=== PATIENT | female | born 1950 | race Caucasian/White ===

== ENCOUNTER 2016-12-19 10:52 | Inpatient (IN) ==
[2016-12-19] MEDS: LOVENOX SUBQ SCH (12:30)
[2016-12-19 12:46] LABS: RETIC% 1.49 % (0.8-2.1); RETIC-HE 41.1 PG (28.2-36.6)
[2016-12-19] MEDS ORDERED: ZOFRAN IV PRN (12:53)
[2016-12-19] MEDS ORDERED: TYLENOL PO PRN (12:56)
[2016-12-19 13:02] LABS: HEMATOCRIT 31.1 % (37.0-47.0); HEMOGLOBIN 10.4 g/dL (12.0-16.0); MANUAL DIFF NEEDED? YES; MCH 31.7 PG (27-31); MCHC 33.4 g/dL (33-37); MCV 94.8 FL (81-99); MPV 9.8 FL (7.4-10.4); PLT 97 X1000 (130-400); RBC 3.28 XMIL (4.2-5.4)
[2016-12-19 13:05] LABS: ALBUMIN 3.4 g/dL (3.5-5.0); CALCIUM 10.3 mg/dL (8.8-10.2); IRON SATURATION 64 %; TIBC 209 ug/dL; TOTAL BILIRUBIN 2.36 mg/dL (0.20-1.00); TOTAL IRON 133 ug/dL (49-151); TOTAL PROTEIN 7.7 g/dL (6.3-8.3); UNBOUND IRON 76 ug/dL (112-346)
[2016-12-19] MEDS: NS 1,000 ML IV SCH (14:00)
[2016-12-19 14:04] LABS: BANDS 2 % (0-1); EOS 2 % (1-10); HYPOCHROM 1+; LYMPHS 40 % (21-51); MONO 4 % (1-9)
--- NOTE | 2016-12-19 15:44 | EKG Report ---
Test Performed on : 12/19/2016 2:51:20 PM Test Reason : chest pain Blood Pressure : / mmHG Vent. Rate : 116 BPM Atrial Rate : 116 BPM P-R Int : 124 ms QRS Dur : 072 ms QT Int : 314 ms P-R-T Axes : -09 035 025 degrees QTc Int : 436 ms Sinus tachycardia. Otherwise normal ECG No previous ECGs available Confirmed by Yakov Meléndez MD ([id number]) on 12/22/2016 7:29:40 AM
--- NOTE | 2016-12-19 15:55 | Diag Imaging Result Document ---
PROCEDURE NAME: FLAT/UPRIGHT ABD/1 VIEW CHEST - 12/19/2016 ABDOMINAL SERIES: FINDINGS: The bowel gas pattern appears nonspecific and nonobstructive. There is a moderate amount of retained fecal debris in the colon. There is no free air identified. Upright chest shows within normal limits heart size. There is airspace disease at the bilateral lung bases, most prominent on the left. There are small bilateral pleural effusions. There is no pneumothorax seen. The visualized bony structures demonstrate heterogeneous density pattern relatively diffusely with sclerosis and small lucencies. This can be seen with diffuse skeletal metastases. IMPRESSION: 1. Apparent constipation. Nonspecific bowel gas pattern otherwise. 2. Airspace disease at bilateral lung bases, most prominent on the left. Small bilateral pleural effusions. 3. Heterogeneous bony density relatively diffusely. This can be seen with diffuse skeletal metastases.
[2016-12-19 17:11] LABS: INR 1.13; PTT 27.1 Seconds (22.0-36.0)
[2016-12-19] MEDS: PROTONIX IV SCH (20:57)
[2016-12-19] MEDS: ZOSYN 3.375 GM/NS 3.375 GM/50 ML IVPB IV SCH (20:57)
[2016-12-19] MEDS: SODIUM CHLORIDE 0.9% INJ SCH (20:57)
[2016-12-19] MEDS: DULCOLAX PR SCH (20:58)
[2016-12-19] MEDS: COLACE PO SCH (20:58)
[2016-12-19] MEDS: MIRALAX PO SCH (20:58)
--- NOTE | 2016-12-19 21:07 | HISTORY AND PHYSICAL ---
PRIMARY CARE PHYSICIAN: Located at [facility]. HISTORY OF PRESENT ILLNESS: Ms Lombardi is a 66-year-old female with no significant past medical history who was sent as a direct admission for further workup of metastatic disease. The patient reports that over 4 weeks ago she started to experience abdominal pain associated with nausea and vomiting. The patient also states that she has been severely constipated for the last 4 weeks as well. The patient has also had unintentional weight loss. The patient states that she is normally a size 12 and now she is down to a size 9. She denies having any fever , chills, shortness of breath or chest pain or recent syncopal episodes. The patient does state that she has never had a colonoscopy done before. The patient was seen by Shannon Paulson, the nurse practitioner at [facility] at which time the patient underwent some routine blood work that revealed a white blood cell count is 28,000 as well as a platelet count of 73,000. S Also patient's LFTs were noted to be elevated. The patient then underwent a abdominal ultrasound that revealed multiple indeterminate solid organ hypoechoic lesions that was then followed up with a CT of the chest without contrast that revealed bilateral pleural effusions as well as bilateral pleural thickening. The patient also underwent a CT of the abdomen and pelvis without contrast that revealed diffuse bony osteolytic defects consistent with metastatic disease. There were also multiple lesions within the liver suspicious for metastatic disease. The patient was then referred to Dr. Schmitt for further workup. The patient was noted to have a normal bone scan done. At this time the patient states that she has been having occasional back pain and intermittent abdominal pain. PAST MEDICAL HISTORY: None. PAST SURGICAL HISTORY: Hysterectomy in 1984. FAMILY HISTORY: The patient's mother had colon cancer. The patient's father had cancer but the patient states that she does not know what type. SOCIAL HISTORY: The patient denies any tobacco, alcohol or illicit drug use. ALLERGIES: No known drug allergies. HOME MEDICATIONS: None. REVIEW OF SYSTEMS: All other review of systems are negative. Please refer to the history of present illness for pertinent positives and negatives. PHYSICAL EXAMINATION: VITAL SIGNS: Temperature 97.8 degrees, blood pressure 106/55, heart rate 124, respiratory rate 19, O2 saturations 95% on room air. GENERAL: This is a chronically ill-appearing elderly female lying in bed in no acute distress. EYES: Conjunctiva clear, EOMI, PERRLA. NECK: Supple, no JVD. No lymphadenopathy. No carotid bruits. LUNGS: Equal air entry bilaterally. Clear to auscultation bilaterally. Diminished breath sounds at the bases. HEART: S1, S2. Normal. Tachycardic. ABDOMEN: Positive bowel sounds. Soft, nontender, nondistended. EXTREMITIES: No edema. No cyanosis. No calf tenderness. NEUROLOGIC: The patient is alert oriented x3. No focal neurologic deficits noted. LABS: White blood cell count 74, hemoglobin 10.4, hematocrit 31, platelets 97, 000, ESR 31. Sodium 133, potassium 4, chloride 95, CO2 22, BUN 28, creatinine 1.3, glucose 102, calcium 10.3, iron 132, TIBC 209, percent saturation 64, ferritin 1135, total bilirubin 2.36, AST 93, ALT 89, alkaline phosphatase 201, LDH 496, CRP 3.8, albumin 3.4, folate 7.6, TSH 1.59, CEA 0.6, vitamin B12 412. EKG shows sinus tachycardia at 116 beats per minute. Abdominal x-ray shows constipation. Air space disease in the lung bases most prominent on the left. Small bilateral pleural effusions and suspected diffuse skeletal metastasis. ASSESSMENT AND PLAN: 1. Metastatic disease. The patient has had staging scans done. Gastroenterology has been consulted to perform endoscopy on the patient to rule out a gastrointestinal source of malignancy. Further recommendations to follow from the oncologist and tree topper. 2. Leukocytosis. The on site wastewater systems technician as ordered flow cytometry. Monitor the patient's white count closely. Cultures have been ordered. 3. Bilateral pleural effusions. These appear to be small and stable. Will continue to monitor the patient closely. 4. Thrombocytopenia. This may be a function of bone marrow suppression. Will await further malignancy workup. 5. Folate deficiency. Will start the patient on folic acid. 6. Constipation. Will start the patient on scheduled laxative therapy. 7. Acute kidney injury. Will start the patient on gentle IV fluid hydration and avoid nephrotoxic agents. Will also monitor the patient's urine output closely. 8. Basilar infiltrates. Will start zosyn. Sputum and blood cultures have been ordered. 9. Deep vein thrombosis prophylaxis. The patient has been started on Lovenox. 10. The plan of care was discussed with the patient and her family at the bedside. cc: Kaya Russo MD [facility]
[2016-12-19 22:30] LABS: URINE SOURCE CLEAN CATCH
[2016-12-19 22:33] LABS: BILIRUBIN URINE NEGATIVE (NEGATIVE); BLOOD URINE NEGATIVE (NEGATIVE); COLOR ORANGE; GLUCOSE URINE NEGATIVE (NEGATIVE); LEUKOCYTES URINE NEGATIVE (NEGATIVE); NITRITE URINE NEGATIVE (NEGATIVE); PH URINE 5.5; PROTEIN URINE 30 mg/dL (NEGATIVE); SP GRAVITY URINE 1.025; TURBIDITY URINE TURBID (CLEAR); UROBILINOGEN URINE NORMAL (NORMAL)
[2016-12-19 22:34] LABS: URINE MICRO REVIEW NEEDED? YES
[2016-12-19 22:40] LABS: UR EPITHELIAL CELLS <10 /HPF (<10); URINE BACTERIA NEGATIVE /HPF; URINE RBC <10 /HPF (<10); URINE WBC <10 /HPF (<10)
[2016-12-19 22:43] LABS: URINE CASTS NONE SEEN; URINE CRYSTALS NONE SEEN; URINE SMALL ROUND CELLS NONE SEEN
[2016-12-20] MEDS: NORCO-5 PO PRN (00:15)
[2016-12-20] MEDS: ZOSYN 3.375 GM/NS 3.375 GM/50 ML IVPB IV SCH ×4 (02:11→20:56)
[2016-12-20] MEDS: NS 1,000 ML IV SCH ×2 (02:12→18:18)
[2016-12-20 07:57] LABS: FLOW CYTOMETERY SOURCE WHOLE BLOOD; LEUKEMIA LYMPHOMA BY FLOW REFERRED FOR TESTING
[2016-12-20] MEDS: FOLIC ACID PO SCH (08:36)
[2016-12-20] MEDS: SODIUM CHLORIDE 0.9% INJ SCH ×2 (08:36→20:56)
[2016-12-20] MEDS: PROTONIX IV SCH ×2 (08:36→20:56)
[2016-12-20] MEDS: COLACE PO SCH ×2 (08:36→20:57)
[2016-12-20] MEDS: MIRALAX PO SCH ×2 (08:37→20:56)
[2016-12-20 08:41] LABS: ALBUMIN 2.7 g/dL (3.5-5.0); CALCIUM 9.7 mg/dL (8.8-10.2); POTASSIUM 4.1 mmol/L (3.5-5.1); TOTAL BILIRUBIN 2.17 mg/dL (0.20-1.00); TOTAL PROTEIN 6.3 g/dL (6.3-8.3)
[2016-12-20 08:45] LABS: INR 1.09; PROTIME 11.5 Seconds (9.2-11.7)
[2016-12-20 08:52] LABS: HEMATOCRIT 26.2 % (37.0-47.0); HEMOGLOBIN 8.6 g/dL (12.0-16.0); MANUAL DIFF NEEDED? YES; MCH 31.5 PG (27-31); MCHC 32.8 g/dL (33-37); MPV 9.3 FL (7.4-10.4); PLT 79 X1000 (130-400); RBC 2.73 XMIL (4.2-5.4)
[2016-12-20 11:27] LABS: HYPOCHROM 2+; LYMPHS 46 % (21-51); MONO 2 % (1-9)
--- NOTE | 2016-12-20 11:49 | CONSULTATION ---
DATE OF CONSULTATION: 12/20/2016 REASON FOR CONSULT: This patient has liver and bony metastases as well as leukocytosis. HISTORY OF PRESENT ILLNESS: Ms. Lombardi came into our clinic as a new patient yesterday, 12/19/2016, after having some imaging done in [place] that showed extensive bony metastases involving the majority of the lumbar and thoracic vertebrae as well as sacrum, right and left iliac bones and femurs as well as pubic rami. The scan from [place] also showed poorly delineated multiple areas of metastatic disease within the liver as well as bilateral pleural effusions. She had been seen at [place] after having a weight loss of at least 10 pounds over 4 weeks, anorexia, and severe constipation as well as diffuse abdominal pain associated with nausea. She denies any obvious fevers, chills, dyspnea, or drenching night sweats. Her laboratories were checked approximately 1 week ago and revealed lymphocytic leukocytosis and thrombocytopenia. She was seen in our office yesterday on 12/19/16. She complained of constipation for the last several weeks along with abdominal pain. Her imaging and labs were reviewed and she has subsequently been admitted to the hospital for further workup and evaluation. Laboratories upon admission showed a white count of 74, hemoglobin of 10.4, hematocrit 31.1, and platelet count 97,000. Tumor markers have been checked and CA-125 is elevated at 268. Folic acid was 7.6, total bilirubin was 2.36, AST 93, ALT 89, and alkaline phosphatase was 310. The patient has been started on a bowel regimen. She apparently had 2 bowel movements last night. Those were the first bowel movements that she has had in quite some time and she is feeling improved. She denies fevers, chills, new lumps or bumps, bone pain, or lymphadenopathy, and she has apparently been walking around the nurse's station and feels well. PAST MEDICAL HISTORY: Patient has no known medical history. She has been healthy and does not typically go to the doctor. She did have a hysterectomy in 1984 with the left ovary remaining. FAMILY AND SOCIAL HISTORY: Patient denies alcohol, tobacco, or illicit drug use. Her mother had an unknown type of cancer that metastasized to her bones. ALLERGIES: Denies allergies. REVIEW OF SYSTEMS: Negative unless indicated in the HPI. PHYSICAL EXAMINATION: Vital Signs: Stable. Constitutional: This is a frail, chronically ill- appearing, female in no acute distress. HEENT: Head is normocephalic , atraumatic. Pupils equal, round, and symmetric. Trachea is midline. Mucous membranes are moist. Cardiovascular: S1 and S2 audible to auscultation, with no heaves, lifts, thrills, or murmurs. Pulmonary: Breath sounds are clear, diminished at bilateral bases. Normal respiratory effort. Gastrointestinal: Abdomen is soft, slightly tender. Positive bowel sounds in all 4 quadrants. Skin: No petechiae, ecchymosis, or rash. Extremities: Patient moves all extremities. Neurologic: Alert and oriented x3. DIAGNOSTIC DATA: Abdominal x-ray showed constipation, possible diffuse bony metastases, airspace disease at the bilateral lung bases, left greater than right, and small bilateral pleural effusions. CT scans as in HPI. EKG showed sinus tachycardia at 116 beats per minute. WBC 7.49, hemoglobin 10.4, hematocrit 31.1, platelet count 97,000. Sodium 133, potassium 4.0, BUN 28, creatinine 1.3. Serum ferritin was 1135, iron saturation 64, total bilirubin 2.36, AST 93, ALT 89, alkaline phosphatase 310. CA-125 was 268. Alpha-fetoprotein was 4.8. CEA is 0.6. ASSESSMENT AND PLAN: 1. Metastatic cancer. The patient has known liver and bony metastases. Her CA- 125 is elevated. She also has some leukocytosis. It is possible that is related to her cancer. We are obtaining a flow cytometry. Gastroenterology has been consulted and current workup is pending. We have asked the family to obtain a CD from her recent imaging for further evaluation. 2. Leukocytosis, flow cytometry is pending. She has also had cultures ordered and is currently on Zosyn. The patient is afebrile. 3. Normocytic anemia and thrombocytopenia could be some bone marrow suppression. She did have some folate deficiency, currently on replacement. We will monitor and transfuse p.r.n. 4. Folate deficiency, on replacement. 5. Bilateral pleural effusions, per primary team. 6. Constipation. Patient is on a bowel regimen and has had 2 bowel movements within the past 24 hours. Continue current management. 7. Deep vein thrombosis prophylaxis, on Lovenox. Dictated by SP Solorzano for Fred Schmitt MD cc: SP Solorzano MD [facility]
--- NOTE | 2016-12-20 12:25 | PROGRESS NOTE ---
DATE: 12/20/2016 SUBJECTIVE: The patient is resting comfortably in bed. She did have 2 bowel movements after receiving laxatives yesterday. OBJECTIVE: Vital Signs: Temperature 97 degrees, blood pressure 108/49, heart rate 89, respirations 20, O2 saturation 93% on room air. General: This is an elderly female, lying comfortably in bed in no acute distress. HEENT: Head normocephalic, atraumatic. Heart: S1 and S2 normal. Regular rate and rhythm. Lungs: Equal air entry bilaterally. Clear to auscultation bilaterally. No crackles. No rales. Abdomen: Positive bowel sounds. Soft, nontender, nondistended. Extremities: No edema. No cyanosis. No calf tenderness. Neurologic: The patient is alert and oriented x3. LABORATORIES: White blood cell count 51, hemoglobin 8.6, hematocrit 26, platelets 79,000. INR 1. Sodium 136, potassium 4.1, chloride 101, CO2 of 23, BUN 28, creatinine 1.5, and glucose 102. ASSESSMENT AND PLAN: 1. Metastatic disease. The patient will be undergoing an endoscopy this coming week to rule out a gastrointestinal source of malignancy. Oncology is following. 2. Leukocytosis. A flow cytometry has been obtained to rule out leukemia. We will continue to monitor this closely. 3. Acute kidney injury. We will continue on IV fluid hydration. We will also check urine studies as well as a renal ultrasound. 4. Thrombocytopenia. Will continue to monitor the patient's platelet count. 5. Folate deficiency. Continue on folic acid replacement. 6. Elevated liver function tests. Slightly improved today. We will continue to monitor closely. This may be secondary to metastatic disease. 7. The plan of care was discussed with the patient and her family at the bedside. cc: Kaya Russo MD
[2016-12-20] MEDS: LOVENOX SUBQ SCH (14:15)
[2016-12-20] MEDS: DULCOLAX PR SCH (20:57)
[2016-12-21] MEDS: ZOSYN 3.375 GM/NS 3.375 GM/50 ML IVPB IV SCH (01:51)
[2016-12-21 06:26] LABS: BASO% 1.1 % (0.0-0.8); EOS# 0.05 X1000 (0.0-0.7); EOS% 0.1 % (0.0-10.0); HEMATOCRIT 25.4 % (37.0-47.0); HEMOGLOBIN 8.2 g/dL (12.0-16.0); MANUAL DIFF NEEDED? YES; MCH 31.3 PG (27-31); MCHC 32.3 g/dL (33-37); MCV 96.9 FL (81-99); MPV 9.6 FL (7.4-10.4); PLT 84 X1000 (130-400); RBC 2.62 XMIL (4.2-5.4)
[2016-12-21 06:33] LABS: INR 1.1; LYMPHS 38 % (21-51); MONO 2 % (1-9); PROTIME 11.6 Seconds (9.2-11.7)
[2016-12-21 06:42] LABS: ALBUMIN 2.7 g/dL (3.5-5.0); CALCIUM 10.1 mg/dL (8.8-10.2); POTASSIUM 4.7 mmol/L (3.5-5.1); TOTAL BILIRUBIN 1.8 mg/dL (0.20-1.00); TOTAL PROTEIN 6.2 g/dL (6.3-8.3)
--- NOTE | 2016-12-21 09:45 | Diag Imaging Result Document ---
PROCEDURE NAME: THORAX/ABDOMEN/PELVIS W/O CONT - 12/21/2016 CT THORAX ABDOMEN PELVIS WITHOUT CONTRAST: TECHNIQUE: No contrast administered per request of the referring provider. A dose reduction protocol was used. No comparison exam. FINDINGS: There are moderate bilateral pleural effusions. There is some associated compressive atelectasis, primarily at the bilateral lower lobes. The remainder of the lungs appear essentially clear. There is no pneumothorax seen. There are nonspecific small mediastinal lymph nodes. The bony structures demonstrate heterogeneous density pattern relatively diffusely with a combination of sclerotic and lytic lesions. This is suspicious for diffuse skeletal metastases. There are paraspinal masses along the mid and lower thoracic spine bilaterally. The liver demonstrates heterogeneous attenuation. While evaluation of the liver is limited without administered intravenous contrast, the possibility of mild multiple liver lesions from metastatic disease cannot be excluded. There is mild splenomegaly. The adrenal glands and pancreas are unremarkable. There are no calcified gallstones. There is no evidence of renal stone or hydronephrosis. There is mild cortical thinning or scarring at the right kidney. There are nonspecific small exophytic lesions which arise at the upper right kidney. There are nonspecific small retroperitoneal lymph nodes. There is no evidence of bowel obstruction. There is uncomplicated colonic diverticulosis which is most prominent at the sigmoid. There is no free air or abscess identified. There is a small amount of free fluid in the pelvis. The visualized bony structures at the abdomen and pelvis demonstrate diffusely heterogeneous density with multiple lytic lesions and areas of sclerosis. This is compatible with diffuse skeletal metastases. There are soft-tissue masses associated with destructive lesions in the lower lumbar spine and sacrum. IMPRESSION: 1. Moderate bilateral pleural effusions. Associated compressive atelectasis at bilateral lower lobes. 2. Heterogeneous liver which is suspicious for metastatic disease in the liver. Mild splenomegaly. 3. Extensive skeletal metastases at the thorax, abdomen and pelvis. Associated paraspinal masses along the bilateral mid and lower thoracic spine. There are smaller soft- tissue masses associated with metastatic disease at the lower lumbar and sacral spine. [facility]
[2016-12-21] MEDS: COLACE PO SCH ×2 (10:22→20:41)
[2016-12-21] MEDS: FOLIC ACID PO SCH (10:22)
[2016-12-21] MEDS: MIRALAX PO SCH (10:22)
[2016-12-21] MEDS: PROTONIX IV SCH ×2 (10:23→20:41)
[2016-12-21 10:40] LABS: AMYLASE 49 U/L (20-200); LIPASE 29 U/L (13-60)
[2016-12-21 11:36] LABS: URINE SOURCE CLEAN CATCH
[2016-12-21 11:46] LABS: BILIRUBIN URINE NEGATIVE (NEGATIVE); BLOOD URINE NEGATIVE (NEGATIVE); COLOR YELLOW; GLUCOSE URINE NEGATIVE (NEGATIVE); LEUKOCYTES URINE NEGATIVE (NEGATIVE); NITRITE URINE NEGATIVE (NEGATIVE); PROTEIN URINE 30 mg/dL (NEGATIVE); SP GRAVITY URINE 1.019; TURBIDITY URINE HAZY (CLEAR); URINE MICRO REVIEW NEEDED? YES; UROBILINOGEN URINE NORMAL (NORMAL)
[2016-12-21 11:49] LABS: UR EPITHELIAL CELLS <10 /HPF (<10); URINE BACTERIA NEGATIVE /HPF; URINE RBC <10 /HPF (<10)
[2016-12-21] MEDS: NS 1,000 ML IV SCH (11:58)
[2016-12-21] MEDS: ZOSYN 2.25 GM/NS 2.25 GM/50 ML IVPB IV SCH ×2 (14:19→21:45)
--- NOTE | 2016-12-21 15:12 | PROGRESS NOTE ---
DATE: 12/21/2016 SUBJECTIVE: Ms. Jodi Lombardi is a 66-year-old female. She is currently comfortable resting in bed. She has no complaints of pain at this time. No complaints of nausea. She states that she had about 3 loose bowel movements yesterday but none today so far. Occasionally she states that she has mild epigastric pain with palpation but other than that is pain free. OBJECTIVE: Vital Signs: Temperature is 98.1 degrees, heart rate 81, respiratory rate 19, blood pressure 91/56, O2 saturation 100% on room air. Cardiovascular: S1, S2. Regular rate and rhythm. No rubs, gallops, murmurs. Pulmonary: Clear to auscultate in the upper lobes. Some expiratory wheezes in the bases. No accessory muscle use or work of breathing noted. This is anterior posteriorly and she is on room. Abdomen: Soft, nondistended, positive bowel sounds x4. Extremities: No edema noted, +2 dorsalis and radial pulses. LABORATORY DATA: White blood cells 53,000, hemoglobin 8, hematocrit 25, platelet count 84,000. Sodium 134, potassium 4.7, BUN 32, creatinine is up from yesterday it was 1.5 today is 2.5 and glucose is 98. INR 1.10, bilirubin is down to 1.8, AST 64, ALT 55, albumin 2.7. Other cytology labs are pending. IMAGING: Abdominal pelvic chest CT showed moderate bilateral pleural effusions associated with compressive atelectasis at bilateral lower bases showed heterogenous liver which is suspicious for metastatic disease in liver and mild splenomegaly. Showed extensive skeletal metastasis at the thorax, abdomen and pelvis associated with paraspinal masses along the bilateral mid and lower thoracic spine. There smaller soft tissue masses associated with metastatic disease in the lower lumbar and sacral spine. ASSESSMENT AND PLAN: 1. Metastatic cancer. Oncology is following and cytology labs are being ordered to rule out leukemia. 2. Acute kidney injury. Continue with IV fluid hydration. Urine studies have not been checked as she had stools with her urine. Patient instructed on attempting to not mixing in order to obtain samples. 3. Leukocytosis being ruled out for leukemia, also since she is having multiple stools will go ahead and send for C. difficile. 4. Constipation, this is resolved with several laxatives. 5. Thrombocytopenia secondary to bone marrow invasion. 6. Folate deficiency. Continue with replacement. 7. Transaminitis, hyperbilirubinemia is continuing to improve daily, could be secondary to metastatic disease. Dictated by SP Treadwell for Kaya Russo MD cc: SP Treadwell MD
--- NOTE | 2016-12-21 19:19 | Diag Imaging Result Document ---
PROCEDURE NAME: US RENAL 2 (RETROPER) COMPLETE - 12/21/2016 BILATERAL RENAL ULTRASOUND: FINDINGS: The right kidney measures 10.6 x 4.8 x 4.6 cm in size. The left kidney measures 9.9 x 5.6 x 5.7 cm in size. There is a questionable 1.4 cm parapelvic cyst at the mid right kidney. There is no other renal mass identified. There is no renal stone or hydronephrosis identified. The urinary bladder is not distended and therefore is not well evaluated. The visualized liver is noted to be heterogeneous. This may relate to metastatic disease in the liver. IMPRESSION: 1. Possible small right renal cyst. No other visible renal abnormality. No hydronephrosis. 2. Heterogeneous liver noted which may relate to metastatic disease.
[2016-12-21] MEDS: SODIUM CHLORIDE 0.9% INJ SCH (20:41)
--- NOTE | 2016-12-21 21:30 | PROGRESS NOTE ---
DATE: 12/21/2016 SUBJECTIVE: The patient states that she has had at least 3 bowel movements today. She has no complaints at this time. She has been ambulating in the hallway. OBJECTIVE: Vital Signs: Temperature 97.5 degrees, blood pressure 107/47, heart rate 99, respirations 16, O2 saturation 100% on room air. General: This is an elderly female lying in bed in no acute distress. Head: Normocephalic, atraumatic. Heart: S1, S2. Normal. Tachycardic. Lungs: Clear to auscultation bilaterally. Diminished breath sounds at the bases. Abdomen: Positive bowel sounds. Soft. Positive for epigastric tenderness. Extremities: No edema. No cyanosis. No calf tenderness. Neurologic: The patient is alert and oriented x3. No focal neurologic deficits noted. LABS: White blood cell count 53, hemoglobin 8.2, hematocrit 25, platelets 84, 000. INR 1.1, sodium 138, potassium 4.7, chloride 104, CO2 21, BUN 32, creatinine 2.5, glucose 98, total bilirubin 1.8, AST 64, ALT 55, alkaline phosphatase 201, albumin 2.7. ASSESSMENT AND PLAN: 1. Metastatic disease. GI has been consulted to arrange for endoscopy to rule out a GI malignancy. 2. Acute kidney injury. The patient's creatinine has increased from 1.5 to 2.5 today. The patient has been receiving IV fluids since admission. The patient has a FENA of less than 1 %. A renal ultrasound was also done that was unremarkable. Will continue with IV fluid hydration. Will likely consult nephrology if this continues to worsen. 3. Elevated liver function tests. Likely secondary to liver metastasis. This appears to be improving daily. 4. Bilateral pleural effusions. Stable. 5. Leukocytosis. Laboratory studies to rule out leukemia and lymphoma have been ordered by the oncologist. The results are still pending. 6. Thrombocytopenia. Stable. 7. Folate deficiency. Continue on folic acid replacement. 8. The plan of care was discussed with the patient and her family at the bedside. cc: MD GODFREY Rodriguez
[2016-12-22] MEDS: ZOSYN 2.25 GM/NS 2.25 GM/50 ML IVPB IV SCH (05:51)
[2016-12-22 06:44] LABS: BASO% 1.3 % (0.0-0.8); EOS# 0.08 X1000 (0.0-0.7); EOS% 0.1 % (0.0-10.0); MANUAL DIFF NEEDED? YES; MCH 32.1 PG (27-31); MCHC 33.3 g/dL (33-37); MCV 96.4 FL (81-99); MPV 9.5 FL (7.4-10.4); PLT 85 X1000 (130-400)
[2016-12-22 06:53] LABS: BANDS 2 % (0-1); LYMPHS 38 % (21-51); MONO 2 % (1-9)
[2016-12-22 06:54] LABS: HYPOCHROM OCCASIONAL
[2016-12-22 07:08] LABS: ALBUMIN 2.8 g/dL (3.5-5.0); CALCIUM 9.9 mg/dL (8.8-10.2); POTASSIUM 4.2 mmol/L (3.5-5.1); TOTAL BILIRUBIN 1.39 mg/dL (0.20-1.00); TOTAL PROTEIN 6.5 g/dL (6.3-8.3)
--- NOTE | 2016-12-22 07:59 | Diag Imaging Result Document ---
PROCEDURE NAME: CHEST-PORTABLE - 12/22/2016 PORTABLE CHEST X-RAY, 12/22/2016: COMPARISON: 12/19/2016. FINDINGS: There is significant worsening right basilar infiltrate which is probably mostly effusion. Worsening small left pleural effusion as well. Stable cardiomegaly. IMPRESSION: Worsening pleural effusions. Possible worsening infiltrate in the right base as well.
[2016-12-22] MEDS: SODIUM CHLORIDE 0.9% INJ SCH ×2 (09:53→20:41)
[2016-12-22] MEDS: PROTONIX IV SCH ×2 (09:53→20:41)
[2016-12-22] MEDS: MERREM 500 MG in NS 50 ML IV SCH ×2 (09:55→20:41)
[2016-12-22] MEDS: FOLIC ACID PO SCH (10:00)
[2016-12-22] MEDS: NS 1,000 ML IV SCH (10:00)
[2016-12-22 10:09] LABS: HEPATITIS PROFILE ACUTE SEE COMMENTS
--- NOTE | 2016-12-22 11:56 | PROGRESS NOTE ---
DATE: 12/22/2016 ATTENDING PHYSICIAN: Dr. Russo. PRIMARY ONCOLOGIST: Dr. Schmitt. SUBJECTIVE: Patient is currently resting in bed. She just moved her bowels today. So far she has had 3 bowel movements. She denies any nausea or vomiting. She complains of abdominal pain in the epigastric and right upper quadrant region which worsens after eating. She has never had a recent colonoscopy. She has had an EGD done in the . She denies any fevers, rigors, chills. OBJECTIVE: Vital signs: Temperature 97.6, pulse rate of 109, respiratory rate 20, pressure 102/67, saturating 96% on room air. Body weight of 142 pounds 14 ounces. BMI 25 kg/m2. General Appearance: Thinly built, lying in bed, in no acute. HEENT: Pale conjunctivae. No icterus. Neck: Supple. Abdomen: Mild discomfort periumbilical region No rebound or guarding. Bowel sounds are present. Extremities: No cyanosis, clubbing. Neurologic: She is alert, awake, oriented. LAB: Hemoglobin and hematocrit are 9 and 27, white count of 16.16, platelet count of 85,000, MCV of 96.4. INR 1.1, PT of 11.6, PTT 27.1. Sodium 138, potassium 4.2, chloride 104, bicarb 29, BUN of 35, creatinine of 2.7, glucose of 94, calcium 9.9, total bilirubin is 1.39, AST 54, ALT 48, alkaline phos 196, total protein 6.2, albumin of 2.8, amylase of 49, lipase of 29. AFP is 4.8. CA-125 is 268 which is high. CA-19-9 is 132, slightly high. CEA is 0.6 which is normal. Urinalysis is showing positive protein, trace ketones, positive white cells. Acute hepatitis panel is nonreactive. IMPRESSION AND PLAN: 1. Metastatic disease involving the liver and the bone of unknown primary. CA- 125 and CA-19-[address] Schmitt is on board and planning to pursue a liver biopsy by CT guidance. 2. Constipation on admission which is now resolving with the use of laxatives. Never had a colonoscopy done. We will schedule for colonoscopy tomorrow. In this regard , she will be on a clear liquid diet today and NPO past midnight. She will be given a gallon of GoLYTELY today. We will only use the gallon up to 3 to 5 and keep her on lots of fluids to prevent any worsening of renal disease. 3. Abdominal pain in the epigastric region and right upper quadrant region. It could be because of metastatic disease of the liver but we will also do an EGD at the same time to evaluate for any kind of gastric outlet obstruction. 4. Elevated liver enzymes, likely secondary to liver metastasis. Negative hepatitis panel. 5. Leukocytosis and thrombocytopenia. Being managed by Dr. Schmitt. Unclear if there is any bone marrow involvement from the metastatic tumor. 6. Gastrointestinal prophylaxis. PPIs. 7. Acute renal insufficiency. Continue to watch her I's and O's, BUN and creatinine, and report them to Dr. Georges. 8. The above plan was discussed with the patient and family at bedside. All questions were answered. cc: MD Nadir Gutierrez MD Katherine Takundwa, MD Naveen T. Lobo, MD Reginald D. Gladish, MD MTDD
--- NOTE | 2016-12-22 13:41 | PROGRESS NOTE ---
DATE: 12/22/2016 SUBJECTIVE: The patient is resting comfortably in bed. The patient states that she is having regular bowel movements. No acute events noted overnight. OBJECTIVE: Vital Signs: Temperature 97.6 degrees, blood pressure 102/67, heart rate 109, respirations 20, O2 saturation is 96% on room air. General: This is an elderly female, lying in bed, in no acute distress. Head: Normocephalic, atraumatic. Heart: S1, S2. Normal. Tachycardic. Lungs: Clear to auscultation bilaterally. Diminished breath sounds at the bases. Abdomen: Positive bowel sounds. Soft, nondistended. Extremities: Trace pedal edema. No cyanosis. No calf tenderness. Neurologic: The patient is alert and oriented x3. LABS: White blood cell count 16, hemoglobin 9, hematocrit 27, platelet count 85 ,000. Sodium 138, potassium 4.2, chloride 104, CO2 20, BUN 35, creatinine 2.7, glucose 94. Total bilirubin 1.3, AST 54, ALT 48, alkaline phosphatase 196, albumin 2.8. ASSESSMENT AND PLAN: 1. Metastatic disease. Workup is in progress by the scout and oncologist. Liver biopsy planned for today. 2. Acute kidney injury. Dr. Georges has been consulted. Will await his recommendations. 3. Bilateral pleural effusions. Stable. 4. Right lung infiltrate. We will switch the patient to Merrem. 5. Thrombocytopenia. Stable. 6. Leukocytosis. Workup is in progress. 7. Folate deficiency. Continue on folic acid replacement. cc: Kaya Russo MD MTDD
[2016-12-22] MEDS ORDERED: GOLYTELY PO ONE ×2 (14:00)
--- NOTE | 2016-12-22 15:54 | Diag Imaging Result Document ---
PROCEDURE NAME: US LIVER BIOPSY W S/I - 12/22/2016 ULTRASOUND-GUIDED LIVER BIOPSY: 12/22/2016. COMPARISON: Studies from 12/21/2016. FINDINGS: The risks and benefits of the procedure were discussed with the patient. All questions were answered. Written and verbal informed consent was obtained. Overlying skin was prepped and draped in sterile fashion. Anesthesia was achieved with injection of 10 mL of 1% lidocaine. Using ultrasound guidance, the 18-gauge biopsy needle was advanced into the anterior left lobe of the liver which was heterogeneous in echotexture. Five biopsy specimens were obtained. The needle was withdrawn intact. The patient reported no symptoms from the procedure. IMPRESSION: Successful and uncomplicated ultrasound-guided liver biopsy.
--- NOTE | 2016-12-22 17:51 | ECHO REPORT ---
ORDER DATE: 12/22/2016 MEASUREMENTS: Left ventricular end-diastolic 4.4, end systolic diameter 2.2, posterior wall thickness 0.6, septal thickness 0.8, left atrium 3.1, aortic root 2.8. SUMMARY: 1. Adequate quality study. 2. Aortic mitral tricuspid and pulmonic valves are without structural abnormality with trace mitral regurgitation and trace tricuspid regurgitation. Estimated systolic PA pressure by Doppler is 35 mmHg. Aortic root is normal size. 3. Normal left ventricular dimensions demonstrated. Left ventricle appears hyperdynamic with estimated left ejection fraction greater than 75%. No regional wall motion abnormalities are evident. Doppler suggests grade 1 left ventricular diastolic dysfunction. Left atrium, right atrium and right ventricle are normal in size with normal right ventricular systolic function. 4. No pericardial effusion. 5. Bilateral pleural effusions. 6. Sinus rhythm during study. 7. Appearance of inferior vena cava suggests normal central venous pressure. CONCLUSIONS: 1. Trace tricuspid regurgitation with estimated systolic PA pressure 35 mmHg. 2. Hyperdynamic left ventricle without wall motion abnormality evident. 3. Grade 1 left ventricular diastolic dysfunction suggested. 4. Bilateral pleural effusions. cc: MD Kaya Goldberg MD
--- NOTE | 2016-12-22 20:02 | CONSULTATION ---
DATE OF CONSULTATION: 12/22/2016 REASON FOR ADMISSION: Is a direct admit for work-up for metastatic disease to the bone and the liver per Dr. Schmitt. CONSULTING PHYSICIAN: Kaya Russo MD HISTORY OF PRESENT ILLNESS: Ms. Lombardi is a 66-year-old white female, who states she has no medical history of any disease process. She states that she is healthy. She does not take any over the counter medicines. She states for the past 4 weeks she has had chronic nausea, loss of appetite, a weight loss of 10 pounds. Subsequently, she followed up with her primary care team at the [facility], [facility]. She was sent for a workup and was found to have metastatic disease. She states that she has had abdominal discomfort, nausea and vomiting. No diarrhea, with constipation. She denies having any fever or chills, shortness of breath. No chest pain. No syncopal episodes. She states that she has never had a colonoscopy done before. She was seen by Shannon Paulson, the STAFF ASSISTANT for the [facility], who sent her to undergo routine blood work. Was found to have a white cell count of 28,000 and a platelet count of 73,000. It was noted that her LFTs were elevated. Subsequently, she was sent to Dr. Schmitt's office, at which time they did a workup and she was found to have tumor markers for CA/125 elevated at 268, folic acid of 7.6, a total bilirubin of 2.36, an AST of 93 ALT, of 89. Her alkaline phosphatases 310. She is subsequently admitted for further evaluation and workup. She has had a liver biopsy performed this a.m. 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 Hepatitis profile was negative. Again, her serum SPEP showed monoclonal bands of IgG lambda and monoclonal bands present for para proteins. The patient is currently hospitalized and during this event it was noted that her creatinine has slowly risen from an initial creatinine of 1.3 to 2.7 today. She has had a renal ultrasound indicating the right kidney measuring 10.6, left measuring 9.9, with a small 1.4 cm cyst noted on the right. She has had urine electrolytes drawn, indicating a FENa score of 0.69%, indicating that this is more prerenal and patient is behind in her fluids. PAST MEDICAL HISTORY: Essentially negative. SURGICAL HISTORY: A hysterectomy in 1984. FAMILY HISTORY: Mother had colon cancer. Patient's father had cancer, though she is unsure of what type. Patient denies any tobacco, alcohol, or illicit drug use. ALLERGIES: No known drug allergies. HOME MEDICATION: She takes none. Very rarely [id number] ibuprofen. REVIEW OF SYSTEMS: Time 10 with pertinent positives listed above in the history of present illness. PHYSICAL EXAMINATION: Vital Signs: Her most recent vital signs are temperature 97.6 degrees, blood pressure 102/67, heart rate 109, respirations 20. She is on room air. Last recorded saturation is 96%. She has had 1650 in. She has had 400 out per void. General: This is a 66- year-old white female. She is resting in bed. She appears chronically ill. She is in no acute distress. Skin: Warm and dry. HEENT: Normocephalic, atraumatic. Conjunctiva is pale. She has pupils equal, round, and reactive to light. Mucous membranes moist. Neck: Supple. Trachea midline. No jugular venous distention. Cardiovascular: She is regular rate and rhythm. She is slightly tachycardic. No murmur or gallop appreciated. Lungs: Clear to auscultation anteriorly. Equal excursion. Abdomen: Soft and nontender. Positive bowel sounds. Genitourinary: Not inspected. Minimal void with no need for assistance at this time. Extremities: 1+ edema. No clubbing or cyanosis. Neurological: She is alert and oriented x3. LABS: Her most recent labs are sodium 138, potassium 4.2, chloride 104, CO2 20. BUN 35, creatinine 2.7. Glucose 94. Her anion gap is 14, calcium 9.9, albumin of 2.8. Her CA marker 19.9 is elevated. Her total bilirubin today is 1.39, AST 54, ALT 48, alkaline phosphatase is 196. White count is now up to 60.16, hemoglobin 9, hematocrit 27, platelet count 85, 000. Again, urinalysis shows positive proteinuria, trace ketone, negative hematuria. ASSESSMENT AND PLAN: 1. Acute kidney injury. More than likely, this appears to be prerenal with a FENa score of 0.69%. She has a negative renal ultrasound. She continues with IV fluids of normal saline at 75 mL an hour. No indications for any intervention at this time. 2. Electrolytes. These are stable . 3. Acidosis. This remains stable, with a mild anion gap acidosis more likely secondary to #1. 4. Leukocytosis with thrombocytopenia. This is being worked up by a primary care team with Gastroenterology and Oncology. The patient is noted to have metastatic disease, staging once all scans are done. Liver biopsy has been performed. Further recommendations per oncology and gastroenterology. 5. Bilateral pleural effusions. Patient is currently on Merrem. No indications for any renal dosing at this time. I would to thank you for allowing us to follow with this patient. Seen, data reviewed, discussed with Shruti Quiroz on 12/22/16. I agree with the above assessment and plan of care. rg Dictated by SP Trejo for Massimo Georges MD cc: SP Trejo MD [facility]
[2016-12-23] MEDS: NORCO-5 PO PRN ×2 (04:25→20:31)
[2016-12-23 06:47] LABS: HEMATOCRIT 25.7 % (37.0-47.0); HEMOGLOBIN 8.4 g/dL (12.0-16.0); MANUAL DIFF NEEDED? YES; MCH 32.1 PG (27-31); MCHC 32.7 g/dL (33-37); MCV 98.1 FL (81-99); MPV 9.9 FL (7.4-10.4); PLT 76 X1000 (130-400); RBC 2.62 XMIL (4.2-5.4)
[2016-12-23 07:03] LABS: ALBUMIN 2.6 g/dL (3.5-5.0); CALCIUM 10.5 mg/dL (8.8-10.2); POTASSIUM 4.1 mmol/L (3.5-5.1); TOTAL BILIRUBIN 1.09 mg/dL (0.20-1.00); TOTAL PROTEIN 6.1 g/dL (6.3-8.3)
[2016-12-23 07:15] LABS: BANDS 2 % (0-1); LYMPHS 32 % (21-51); MONO 2 % (1-9); NRBC 1 % (0-0)
[2016-12-23] MEDS: MERREM 500 MG in NS 50 ML IV SCH ×2 (08:32→20:31)
[2016-12-23] MEDS: SODIUM CHLORIDE 0.9% INJ SCH ×2 (08:32→20:31)
[2016-12-23] MEDS: PROTONIX IV SCH ×2 (08:32→20:31)
[2016-12-23] MEDS: NS 1,000 ML IV SCH (10:58)
--- NOTE | 2016-12-23 11:03 | PROGRESS NOTE ---
DATE: 12/23/2016 SUBJECTIVE: Ms. Lombardi is resting quietly in bed. She denies any pain. No increased work of breathing. OBJECTIVE: Her most recent vital signs. Her temperature 97.2 degrees, blood pressure 122/55, heart rate 103, respirations 18. She is on room air. Last recorded saturation 92%. She has had 1174 in. She states that she has been voiding. This has not been recorded on her output. Her labs this a.m., sodium 138, potassium 4.1, chloride 104, CO2 20. BUN 36, creatinine 2.5, glucose 95. Her anion gap is 14. Calcium is 10.5. Total bilirubin 1.09. AST 52, ALT 41, alkaline phosphatase 173. Albumin is 2.6. White count 68.20, hemoglobin 8.4, hematocrit 25.7, with a platelet count of 76,000. PHYSICAL EXAMINATION: General: This is a 66-year-old white female. She is currently resting in bed. She is in no acute distress. Skin: Warm and dry. HEENT: Normocephalic , atraumatic. Conjunctivae pink. She has JOS. Mucous membranes moist. Neck: Supple. Trachea midline. No JVD. Cardiovascular: Regular rate and rhythm. She is without murmur or gallop. Lungs: Clear to auscultation anteriorly. Equal excursion on room air. Abdomen: Round, soft , nontender. Positive bowel sounds. Genitourinary: Not inspected. Minimal void with no assistance at this time. Extremities: She continues with 1+ pitting edema. No clubbing or cyanosis. Neurological: She is alert and oriented x3. ASSESSMENT AND PLAN: 1. Acute kidney injury. Again, her FENa score indicated that patient was more prerenal. She continues with her IV fluids of normal saline at 75 mL an hour. We will stop her IVF today as she is swelling.rg 2. Electrolytes. Patient has borderline hypercalcemia. Again this may be related to her metastatic CA of the bone. We will continue to monitor. This no need for intervention at this time. She continues on IV fluids. 3. Acidosis. This remains stable. 4. Leukocytosis with thrombocytopenia. She is now being followed by GI and Oncology. 5. Bilateral pleural effusions. These remain stable. She is on Merrem. I would to thank you for allowing us to follow with this patient. Seen, data reviewed, discussed with Shruti Quiroz on 12/23/16. I agree with the above assessment and plan of care. rg Dictated by SP Trejo for Massimo Georges MD cc: SP Trejo MD [facility]
--- NOTE | 2016-12-23 13:21 | PROGRESS NOTE ---
DATE: 12/23/2016 SUBJECTIVE: The patient is resting comfortably in bed. She is currently awaiting endoscopy. No acute events noted overnight. OBJECTIVE: Vital Signs: Temperature 97.8 degrees, blood pressure 122/55, heart rate 107, respirations 18, O2 saturations 92% on room air. General: This is an elderly female, lying in bed, in no acute distress. Head: Normocephalic atraumatic. Heart: S1, S2. Normal. Regular rate and rhythm. Lungs: Clear to auscultation bilaterally. Abdomen: Positive bowel sounds. Soft, nontender, nondistended. Extremities: No edema. No cyanosis. No calf tenderness. Neurologic: The patient is alert and oriented x3. LABS: White blood cell count 68, hemoglobin 8.4, hematocrit 25, platelets 76, 000. Sodium 138, potassium 4.1, chloride 104, CO2 20. BUN 36, creatinine 2.5, glucose 95. AST 52, ALT 41, alkaline phosphatase 173 total protein 6.1. ASSESSMENT AND PLAN: 1. Metastatic disease. The workup is currently in progress. GI is planning endoscopy today. The liver biopsy results are currently pending. 2. Acute kidney injury. Slowly improving. Nephrology is following. 3. Bilateral pleural effusions. Stable. 4. Pulmonary infiltrate. Continue on Merrem. 5. Folate deficiency. Continue on folic acid replacement. 6. Leukocytosis. The workup is in progress. Booe marrow biopsy planned for today. cc: Kaya Russo MD MTDD
[2016-12-23] MEDS ORDERED: SENSORCAINE-MPF 0.5%/EPI 1:200,000 ONE (13:57)
--- NOTE | 2016-12-23 15:04 | OPERATIVE NOTE ---
PROCEDURE DATE: PROCEDURE: Colonoscopy and esophagogastroduodenoscopy. PREOP DIAGNOSES: 1. Abdominal pain. 2. Metastatic disease in the liver, rule out gastrointestinal primary. POSTOPERATIVE DIAGNOSIS: Diverticulosis. Otherwise normal exam. DESCRIPTION OF PROCEDURE: After informed consent and adequate intravenous sedation by Anesthesia, the scope introduced the esophagus. No esophageal varices. Cardia, fundus, body, antrum, pylorus, duodenal bulb and second portion normal. Were no masses, no ulcers. Scope is withdrawn. At this point, digital rectal exam performed. Scope introduced all the way in the cecum. Entire colon is carefully examined. There is no tumors, angiodysplasia no evidence of colitis and there is scattered diverticula present. The scope is withdrawn. The patient tolerated procedure, transported back to recovery in satisfactory condition. cc: Yane Levin MD
[2016-12-23] MEDS ORDERED: VERSED ONE (15:11)
[2016-12-23] MEDS ORDERED: DIPRIVAN 1% ONE ×2 (15:11→15:57)
[2016-12-23] MEDS ORDERED: FENTANYL ONE (15:11)
[2016-12-23] MEDS ORDERED: ANESTHESIA PB SET 88 IN 5742 ONE (15:31)
[2016-12-23] MEDS ORDERED: EXTENSION SET 32 IN 4522 ONE (15:31)
[2016-12-23] MEDS ORDERED: XYLOCAINE-MPF 2% ONE (15:32)
[2016-12-23] MEDS ORDERED: LR 1,000 ML ONE (15:33)
[2016-12-23] MEDS: FOLIC ACID PO SCH (20:31)
[2016-12-24 06:52] LABS: ALBUMIN 2.9 g/dL (3.5-5.0); CALCIUM 10.3 mg/dL (8.8-10.2); POTASSIUM 3.8 mmol/L (3.5-5.1); TOTAL BILIRUBIN 1.03 mg/dL (0.20-1.00); TOTAL PROTEIN 6.3 g/dL (6.3-8.3)
[2016-12-24 07:00] LABS: HEMATOCRIT 26.8 % (37.0-47.0); HEMOGLOBIN 8.7 g/dL (12.0-16.0); MANUAL DIFF NEEDED? YES; MCH 31.4 PG (27-31); MCHC 32.5 g/dL (33-37); MCV 96.8 FL (81-99); MPV 10.1 FL (7.4-10.4); PLT 85 X1000 (130-400); RBC 2.77 XMIL (4.2-5.4)
[2016-12-24 07:22] LABS: MONO 2 % (1-9)
[2016-12-24 07:24] LABS: HYPOCHROM 2+; POLYCHROM 1+
[2016-12-24 07:25] LABS: LYMPHS 42 % (21-51)
[2016-12-24 07:26] LABS: LARGE PLATELETS 1+
[2016-12-24] MEDS: FOLIC ACID PO SCH (09:21)
[2016-12-24] MEDS: MERREM 500 MG in NS 50 ML IV SCH ×2 (09:21→20:05)
[2016-12-24] MEDS: SODIUM CHLORIDE 0.9% INJ SCH ×2 (09:21→20:05)
[2016-12-24] MEDS: PROTONIX IV SCH ×2 (09:21→20:05)
[2016-12-24] MEDS: DECADRON PO SCH (09:23)
--- NOTE | 2016-12-24 09:24 | PROGRESS NOTE ---
DATE: 12/24/2016 DATE SEEN: 12/24/2016 TIME SEEN: 07:55 SUBJECTIVE: Ms. Lombardi is resting quietly in a chair. She has sat up to eat her breakfast. Her family is at her bedside. She denies chest pain or increased work of breathing. OBJECTIVE: Vital Signs: Her most recent vital signs are temperature 97.5 degrees, blood pressure 132/59, heart rate 118, respirations 20. She is on room air. Last recorded saturation 94%. Patient has 0 recorded in or out this a.m. for the last 24-48 hours, though patient is voiding and the nursing home aide does indicate that she has assisted her to go to the bathroom several times yesterday. PHYSICAL EXAMINATION: General: This is a 66-year-old white female. She is resting quietly in a chair. She is in no acute distress. Skin: Warm and dry. HEENT: Normocephalic, atraumatic. Conjunctiva is pink. She has Pupils equal, round, and reactive to light. Mucous membranes moist. Neck: Supple. Trachea midline. No jugular venous distention. Cardiovascular : Regular rate and rhythm. She is without murmur or gallop. Lungs: Clear to auscultation anteriorly. Equal excursion on room air. Abdomen: Round, soft, nontender. Positive bowel sounds. Genitourinary: Not inspected. She has noted to be voiding, though unable to keep an accurate I 's and O's. We have requested the family and the hospital staff to assist in this measure. Extremities: She has 1+ pitting edema to the lower extremities bilaterally. No clubbing or cyanosis. Neurological: She is alert and oriented x3. LABS: Sodium 137, potassium 3.8, chloride 104, CO2 21. BUN 38, creatinine is 1.9. Glucose 101. Anion gap is 12, calcium 10.3, albumin 2.9 white count 78.8, hemoglobin 8.7, hematocrit 26.8, with a platelet count of 85,000. Patient has a liver biopsy still pending from liver mass indicated. She also has a bone marrow biopsy that was done yesterday still pending. ASSESSMENT AND PLAN: 1. Acute kidney injury. Patient now has her IV fluids off. She indicates that she is eating. Her creatinine and BUN continue to improve. No indications for any intervention. 2. Electrolytes and acid-base balance. These are stable. 3. Anemia. This remains low, but stable. 4. Leukocytosis. This is currently being followed by oncology and gastroenterology. 5. Bilateral pleural effusions. She continues on Merrem. I would to thank you for allowing us to follow with this patient. Seen, data reviewed, discussed with Shruti Quiroz on 12/24/16. I agree with the above assessment and plan of care. rg Dictated by SP Trejo for Massimo Georges MD cc: SP Trejo MD [facility]
--- NOTE | 2016-12-24 14:05 | PROGRESS NOTE ---
DATE: 12/24/2016 SUBJECTIVE: The patient is sitting up in a chair. She has no complaints today. She states that she is continuing to have regular bowel movements. OBJECTIVE: Vital Signs: Temperature 97 degrees, blood pressure 116/61, heart rate 110, respirations 18, O2 saturation is 95% on room air. General: This is an elderly female, sitting in a chair. No acute distress. Head: Normocephalic, atraumatic. Heart: S1, S2. Normal. Tachycardic. Lungs: Clear to auscultation bilaterally. Diminished breath sounds at the bases. Abdomen: Positive bowel sounds. Soft, nontender, nondistended. Extremities: No edema. No cyanosis. No calf tenderness. Neurologic: The patient is alert and oriented x3. LABS: White blood cell count 78, hemoglobin 8.7, hematocrit 26, platelets 85,000. Sodium 137, potassium 3.8, chloride 104, CO2 21, BUN 38, creatinine 1.9, glucose 101. AST 55, ALT 37, total bilirubin 1, albumin 2.9. ASSESSMENT AND PLAN: 1. Metastatic disease. The liver biopsy pathology is currently pending. 2. Leukocytosis. This could represent CLL or multiple myeloma. The bone marrow pathology is still pending at this time. 3. Acute kidney injury. Improved. 4. Bilateral pleural effusions. Stable. 5. Folate deficiency. Continue on folic acid replacement. 6. Disposition. The patient will likely require port placement to initiate chemotherapy once the pathology reports are available. Once that is done, the patient will be able to be discharged home as per Dr. Schmitt. cc: Kaya Russo MD
[2016-12-25] MEDS: NORCO-5 PO PRN ×2 (01:24→20:48)
[2016-12-25 06:15] LABS: BASO% 2.2 % (0.0-0.8); EOS# 0.06 X1000 (0.0-0.7); EOS% 0.1 % (0.0-10.0); MANUAL DIFF NEEDED? YES; MCHC 33.3 g/dL (33-37); MPV 10.1 FL (7.4-10.4); PLT 86 X1000 (130-400)
[2016-12-25 06:32] LABS: LYMPHS 40 % (21-51)
[2016-12-25 06:35] LABS: ALBUMIN 2.7 g/dL (3.5-5.0); CALCIUM 9.8 mg/dL (8.8-10.2); POTASSIUM 4.9 mmol/L (3.5-5.1); TOTAL BILIRUBIN 0.81 mg/dL (0.20-1.00); TOTAL PROTEIN 6.1 g/dL (6.3-8.3)
[2016-12-25] MEDS: MERREM 500 MG in NS 50 ML IV SCH ×2 (09:45→20:48)
[2016-12-25] MEDS: FOLIC ACID PO SCH (09:46)
[2016-12-25] MEDS: PROTONIX IV SCH ×2 (09:46→20:49)
[2016-12-25] MEDS: DECADRON PO SCH (09:46)
[2016-12-25] MEDS: SODIUM CHLORIDE 0.9% INJ SCH ×2 (09:46→20:49)
[2016-12-25] MEDS ORDERED: NS 500 ML ONE (10:22)
[2016-12-25] MEDS ORDERED: KEFZOL 1 GM/D5W 1 GM/50 ML IVPB ONE (11:16)
[2016-12-25] MEDS ORDERED: MARCAINE 0.25% PF/EPI 1:200,000 ONE (11:43)
[2016-12-25] MEDS ORDERED: HEPARIN ONE ×2 (11:43→11:44)
[2016-12-25] MEDS ORDERED: XYLOCAINE 1%/EPI 1:100,000 ONE (11:43)
[2016-12-25] MEDS ORDERED: NS 250 ML ONE (11:44)
[2016-12-25] MEDS ORDERED: LASIX IV ONE (12:23)
[2016-12-25] MEDS ORDERED: DIPRIVAN 1% ONE (13:03)
--- NOTE | 2016-12-25 13:03 | Diag Imaging Result Doc PS360 ---
EXAM: CHEST-PORTABLE HISTORY: right subclavian port placement COMPARISON: 12/22/2016 FINDINGS: There are right lower lung airspace disease and bilateral pleural effusions which appear grossly stable. There is mild skinfold artifact over the mid lateral left lung. There is been interval insertion of a right internal jugular central venous catheter with its tip in the expected location of the right atrium. There is no evidence of pneumothorax. IMPRESSION: Tip of central venous catheter at right atrium. No evidence of pneumothorax. Stable right lower lung airspace disease and bilateral pleural effusions. Electronically signed by Reji Anthony 12/25/2016 1:01 PM
[2016-12-25] MEDS ORDERED: XYLOCAINE-MPF 2% ONE (13:10)
[2016-12-25] MEDS: ZYLOPRIM PO SCH (14:29)
--- NOTE | 2016-12-25 15:42 | PROGRESS NOTE ---
DATE: 12/25/2016 SUBJECTIVE: The patient is resting comfortably in bed. She is scheduled to have a port placed today. She does have edema in her lower extremities. OBJECTIVE: Vital Signs: Temperature 96.8 degrees, blood pressure 120/58, heart rate 107, respiration 16, O2 saturations 97% on 3 L nasal cannula. General: This is an elderly female, lying in bed, in no acute distress. Head: Normocephalic, atraumatic. Heart: S1, S2. Normal. Tachycardic. Lungs: Equal air entry bilaterally. Diminished breath sounds at the bases. No crackles. No rales. Abdomen: Positive bowel sounds. Soft, nontender, nondistended. Extremities: 2+ edema in the lower extremities. Neurologic: The patient is alert and oriented x3. LABS: White blood cell count 83, hemoglobin 8, hematocrit 24, platelets 86,000. Sodium 136, potassium 4.9, chloride 105, CO2 22, BUN 39, creatinine 1.5, glucose 129. ASSESSMENT AND PLAN: 1. Suspected multiple myeloma. The preliminary pathology is coming back positive for multiple myeloma from both the bone marrow and the liver biopsy. The patient is scheduled to have a Port-A-Cath placed today and chemotherapy will be initiated by Dr. Schmitt. We will continue to monitor closely. 2. Acute kidney injury. Improved. 3. Peripheral edema. We will give the patient a dose of Lasix today. 4. Bilateral pleural effusions. Stable. 5. Right lower lobe infiltrate. Continue on Merrem. cc: Kaya Russo MD
--- NOTE | 2016-12-25 15:50 | PROGRESS NOTE ---
DATE: 12/25/2016 TIME SEEN: 08:50. SUBJECTIVE: Ms. Lombardi is resting quietly in bed. She denies any chest pain. No increased work of breathing. OBJECTIVE: Her most recent vital signs: Temperature 97.2 degrees, blood pressure 130/60, heart rate 97, respiration 14. She remains on room air. Last recorded saturations 92 %-95%. She has had 540 in, 1050 out per void. LABORATORY DATA: Sodium 136, potassium 4.9, chloride 105, CO2 22, BUN 39, creatinine 1.5, glucose 129. Her anion gap is 9, calcium 9.8, albumin 2.7. Her white count 83.89, hemoglobin 8, hematocrit 24, platelet count 24,000. PHYSICAL EXAMINATION: General: This is a 66-year-old white female. She is resting quietly in bed. She is in no acute distress. Skin: Warm and dry. HEENT: Normocephalic , atraumatic. Conjunctivae pink. She has JOS. Mucous membranes moist. Neck: Supple. Trachea midline. No JVD. Cardiovascular: Regular rate and rhythm without murmur or gallop. Lungs : Clear to auscultation anteriorly. Equal excursion on room air. Abdomen: Round, soft, nontender. Positive bowel sounds. Genitourinary: Not inspected. She has adequate void. Extremities: Has 1+ lower extremity edema. No clubbing or cyanosis. Neurological: She is alert and oriented x3. ASSESSMENT AND PLAN: 1. Acute kidney injury. Patient has been off of her IV fluids. She has had increasing p.o. intake. Her BUN and creatinine have continued to improve over the last several days. She is not yet to her baseline. 2. Electrolytes and acid-base balance and anemia. These remain stable. 3. Leukocytosis. This is followed by Oncology and Gastroenterology. 4. Bilateral pleural effusions. She continues on Merrem. I would like to thank you for allowing us to follow with this patient. Seen, data reviewed, discussed with Shruti Quiroz on 12/25/16. I agree with the above assessment and plan of care. rg Dictated by SP Trejo for Massimo Georges MD cc: SP Trejo MD [facility]
[2016-12-25] MEDS: COLACE PO PRN (20:48)
[2016-12-25] MEDS: COUMADIN PO SCH (20:49)
[2016-12-26 05:58] LABS: BASO% 1.1 % (0.0-0.8); EOS# 0.04 X1000 (0.0-0.7); EOS% 0.1 % (0.0-10.0); HEMATOCRIT 33.3 % (37.0-47.0); HEMOGLOBIN 11.3 g/dL (12.0-16.0); MANUAL DIFF NEEDED? YES; MCH 31.2 PG (27-31); MCHC 33.9 g/dL (33-37); PLT 67 X1000 (130-400); RBC 3.62 XMIL (4.2-5.4)
[2016-12-26 06:13] LABS: BANDS 4 % (0-1); LYMPHS 28 % (21-51); MONO 6 % (1-9)
[2016-12-26 06:17] LABS: ALBUMIN 2.7 g/dL (3.5-5.0); CALCIUM 9.8 mg/dL (8.8-10.2); TOTAL BILIRUBIN 0.95 mg/dL (0.20-1.00)
--- NOTE | 2016-12-26 07:05 | PROGRESS NOTE ---
DATE: 12/26/2016 Ms. Lombardi's kidney function continues to improve and her fluid balance has been negative in the last 24 hours. Good urine output. We will sign off at this time. Please contact us if we can be of further assistance. cc: Massimo Georges MD
[2016-12-26] MEDS: MERREM 500 MG in NS 50 ML IV SCH ×2 (09:27→21:00)
[2016-12-26] MEDS: PROTONIX IV SCH ×2 (09:27→21:00)
[2016-12-26] MEDS: SODIUM CHLORIDE 0.9% INJ SCH ×2 (09:28→21:00)
[2016-12-26] MEDS: FOLIC ACID PO SCH (09:28)
[2016-12-26] MEDS: ZYLOPRIM PO SCH (09:28)
[2016-12-26] MEDS: DECADRON PO SCH (09:28)
[2016-12-26] MEDS ORDERED: LASIX IV ONE (10:56)
--- NOTE | 2016-12-26 15:31 | PROGRESS NOTE ---
DATE: 12/26/2016 SUBJECTIVE: The patient is resting comfortably in bed. She was placed on oxygen overnight due to shortness of breath. She does have 2+ edema in the lower extremities. OBJECTIVE: Vital Signs: Temperature 97.8 degrees, blood pressure 128/73, heart rate 100, respirations 20, O2 saturation 95% on 2L nasal cannula. General: This is an elderly female, lying in bed in no acute distress. HEENT: Head normocephalic, atraumatic. Heart: S1 and S2 normal. Regular rate and rhythm. Lungs: Clear to auscultation bilaterally, with decreased breath sounds at the bases. Abdomen: Positive bowel sounds. Soft, nontender, nondistended. Extremities: 2+ edema in the lower extremities. Neurologic: The patient is alert and oriented x3. LABORATORIES: White blood cell count 56, hemoglobin 11, hematocrit 33, platelets 67,000. Sodium 138, potassium 4, chloride 104, CO2 of 23, BUN 38, creatinine 1.3, glucose 97. AST 64, ALT 26. ASSESSMENT AND PLAN: 1. Multiple myeloma. The patient has a Port-A-Cath in place. Chemotherapy will be initiated by Dr. Schmitt. 2. Acute kidney injury. Improving daily. 3. Volume overload. Will give the patient a dose of IV Lasix today and monitor her renal function closely as well as her intake. 4. Bilateral pleural effusions. We will continue to monitor this closely. cc: Kaya Russo MD
[2016-12-26] MEDS: COUMADIN PO SCH (21:00)
--- NOTE | 2016-12-27 07:05 | Diag Imaging Result Doc PS360 ---
EXAM: CHEST-PORTABLE HISTORY: dyspnea TECHNIQUE: AP portable at 0500 COMMENT: Lateral pleural effusions. There is pulmonary edema and/or pneumonia in both lung bases. There is extensive osteosclerosis of the visualized skeleton particularly the spine and ribs. Compared to 12/25/2016 there is slight improvement with regard to the pleural fluid collections and pulmonary edema. IMPRESSION: Slightly improved pleural effusions and pulmonary edema. Electronically signed by Sonny Aaron 12/27/2016 7:02 AM
[2016-12-27 08:39] LABS: HEMATOCRIT 36.4 % (37.0-47.0); HEMOGLOBIN 12.5 g/dL (12.0-16.0); MANUAL DIFF NEEDED? YES; MCH 31.6 PG (27-31); MCHC 34.3 g/dL (33-37); MCV 91.9 FL (81-99); PLT 76 X1000 (130-400); RBC 3.96 XMIL (4.2-5.4)
[2016-12-27 08:57] LABS: ALBUMIN 3.1 g/dL (3.5-5.0); CALCIUM 9.7 mg/dL (8.8-10.2); POTASSIUM 4.2 mmol/L (3.5-5.1); TOTAL PROTEIN 7.2 g/dL (6.3-8.3)
[2016-12-27] MEDS ORDERED: LASIX IV ONE (09:07)
[2016-12-27] MEDS: MERREM 500 MG in NS 50 ML IV SCH (10:12)
[2016-12-27] MEDS: SODIUM CHLORIDE 0.9% INJ SCH ×2 (10:13→20:35)
[2016-12-27] MEDS: PROTONIX IV SCH ×2 (10:13→20:35)
[2016-12-27] MEDS: NORCO-5 PO PRN ×2 (10:13→20:36)
[2016-12-27] MEDS: ZYLOPRIM PO SCH (10:14)
[2016-12-27] MEDS: FOLIC ACID PO SCH (10:14)
[2016-12-27] MEDS: DECADRON PO SCH (10:14)
--- NOTE | 2016-12-27 14:31 | PROGRESS NOTE ---
DATE: 12/27/2016 SUBJECTIVE: The patient complains of swelling in her feet and some mild shortness of breath. She denies having any chest pain. No acute events noted overnight. OBJECTIVE: Vital Signs: Temperature 97 degrees, blood pressure 143/72, heart rate 91, respirations 18, O2 saturations 97% on 2 L nasal cannula. General: This is an elderly female, lying in bed, in no acute distress. Head: Normocephalic, atraumatic. Heart: S1, S2. Normal. Regular rate and rhythm. Lungs: Equal air entry bilaterally. No crackles, no rales. Abdomen: Positive bowel sounds. Soft, nontender, nondistended. Extremities: 2+ edema in the lower extremities. Neurologic: The patient is alert and oriented x3. LABS: White blood cell count 7.9, hemoglobin 12, hematocrit 36, platelets 76,000. Sodium 137, potassium 4.2, chloride 101, CO2 25, BUN 36, creatinine 1, glucose 115. AST 74, ALT 27, alkaline phosphatase 159. ASSESSMENT AND PLAN: 1. Multiple myeloma. Management as per Dr. Schmitt. 2. Bilateral pleural effusions with pulmonary edema. We will continue with IV Lasix. This appears to be slowly improving on chest x-ray. 3. Acute kidney injury. Improved. Continue to monitor closely. 4. Constipation. Continue on scheduled laxative therapy. 5. Thrombocytopenia. Stable. cc: Kaya Russo MD
[2016-12-27] MEDS ORDERED: VELCADE SUBQ ONE (15:00)
[2016-12-27] MEDS: COUMADIN PO SCH (20:35)
[2016-12-27] MEDS: COLACE PO PRN (20:43)
[2016-12-28 07:21] LABS: HEMATOCRIT 38.2 % (37.0-47.0); HEMOGLOBIN 12.7 g/dL (12.0-16.0); MANUAL DIFF NEEDED? YES; MCH 31.1 PG (27-31); MCHC 33.2 g/dL (33-37); MCV 93.4 FL (81-99); MPV 9.3 FL (7.4-10.4); PLT 71 X1000 (130-400); RBC 4.09 XMIL (4.2-5.4)
[2016-12-28 07:47] LABS: ALBUMIN 3.1 g/dL (3.5-5.0); CALCIUM 9.6 mg/dL (8.8-10.2); POTASSIUM 4.7 mmol/L (3.5-5.1); TOTAL BILIRUBIN 1.02 mg/dL (0.20-1.00); TOTAL PROTEIN 7.3 g/dL (6.3-8.3)
[2016-12-28 07:59] LABS: BANDS 4 % (0-1); LYMPHS 34 % (21-51); MONO 6 % (1-9); NRBC 3 % (0-0)
[2016-12-28] MEDS: FOLIC ACID PO SCH (08:12)
[2016-12-28] MEDS: ZYLOPRIM PO SCH (08:13)
[2016-12-28] MEDS: PROTONIX IV SCH ×2 (08:13→21:23)
[2016-12-28] MEDS: SODIUM CHLORIDE 0.9% INJ SCH ×2 (08:13→21:23)
[2016-12-28] MEDS: DECADRON PO SCH (08:13)
--- NOTE | 2016-12-28 13:50 | PROGRESS NOTE ---
DATE: 12/27/2016 CC/HPI: Patient reports that she is doing well. No complaints today. PHYSICAL EXAMINATION: Vital signs: Afebrile. Vital signs are stable. Cardiac Exam: Regular rate and rhythm. Normal S1, S2. Chest: Reveals mildly decreased air entry at the bases. Abdomen: Soft, nontender, without hepatosplenomegaly or masses. Extremities: No cyanosis or clubbing. Edema is present. LABORATORY DATA: White count 79.8, hemoglobin 12.5, platelets 76,000. BUN 36, creatinine 1.0. ASSESSMENT/PLAN: 1. Multiple myeloma: We will start her on Velcade today. She is currently already on Decadron. Monitor for tumor lysis. 2. Tumor lysis prophylaxis: She is on allopurinol. 3. Bilateral pleural effusions: Monitor closely. If she has increasing shortness of breath will consider pleural tap. She is on Lasix. cc: Fred Schmitt MD
--- NOTE | 2016-12-28 13:53 | PROGRESS NOTE ---
DATE: 12/28/2016 SUBJECTIVE: The patient reports some mild shortness of breath. Yesterday's chest x-ray revealed pulmonary edema and stable pleural effusions. She got out of breath with a bath today. She is not a complainer. PHYSICAL EXAMINATION: Vital signs: Temperature 96.1 degrees, pulse 97, blood pressure 122/60. Eyes: EOMI. PERRLA. Anicteric. Mucous membranes are moist. Cardiac Exam: Regular rate and rhythm. Normal S1, S2. Chest: Clear to auscultation except for mildly decreased air entry at the bases. Abdomen: Soft, nontender, without hepatosplenomegaly. Extremities: Reveal edema. LABORATORY DATA: White count 43.8, hemoglobin 12.7, platelets 71,000. BUN 38, creatinine 1.0. ASSESSMENT AND PLAN: 1. Multiple myeloma: She was started on Velcade yesterday. White count has nicely dropped down. Next dose of Velcade will be next week and we will plan to give this outpatient. Hopefully she will be discharged by then. 2. Shortness of breath. This is due to pulmonary edema and pleural effusion. Discussed with Dr. Russo. Increase Lasix to b.i.d. 3. 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 Her LFT abnormalities are improving. 4. Bone metastases: She will be started on Zometa outpatient. cc: Fred Schmitt MD
--- NOTE | 2016-12-28 14:31 | Diag Imaging Result Doc PS360 ---
EXAM: CHEST-2 VIEWS HISTORY: pleural effusions TECHNIQUE: Two views COMMENT: There is generalized sclerosis of the regional skeleton consistent with osteoblastic metastasis. The volume of pleural fluid on both sides appears to have diminished slightly since the previous study of 12/27/2016. IMPRESSION: Improved pleural effusions. Electronically signed by Sonny Aaron 12/28/2016 2:29 PM
[2016-12-28] MEDS: LASIX IV SCH (17:01)
--- NOTE | 2016-12-28 18:18 | PROGRESS NOTE ---
DATE: 12/28/2016 SUBJECTIVE: The patient complains of shortness of breath. She has no other complaints. OBJECTIVE: Vital Signs: Temperature 96 degrees, blood pressure 122/60, heart rate 97, respirations 20, O2 saturation is 97% on 2 L nasal cannula. General: This is a chronically ill- appearing, elderly female, lying in bed, in no acute distress. Head: Normocephalic, atraumatic. Heart: S1, S2. Normal. Regular rate and rhythm. Lungs: Diminished breath sounds at the bases. Equal air entry bilaterally. No rhonchi. No rales. Abdomen: Positive bowel sounds. Soft, nontender, nondistended. Extremities: There is 2+ edema. Neurologic: The patient is alert and oriented x3. LABS: White blood cell count 43, hemoglobin 12, hematocrit 38, platelets 71,000. Sodium 140, potassium 4.7, chloride 102, CO2 25, BUN 38, creatinine 1, glucose 119, total bilirubin 1.0, AST 70, ALT 27, alkaline phosphatase 145. ASSESSMENT AND PLAN: 1. Multiple myeloma. The patient received a dose of chemotherapy yesterday. Dr. Schmitt is following. 2. Pulmonary edema with bilateral pleural effusions. We will increase the Lasix 40 mg IV q.12 hours. Will then repeat a chest x-ray tomorrow. 3. Acute kidney injury. Improved. Continue to monitor closely while on Lasix. 4. Thrombocytopenia, stable. 5. Constipation. Continue on scheduled laxative therapy. 6. Disposition. Hopefully if the patient's chest x-ray looks better tomorrow she will be able to be discharged home with follow up with Dr. Schmitt as outpatient. cc: Kaya Russo MD
[2016-12-28 20:18] LABS: INR 1.25; PROTIME 13.3 Seconds (9.2-11.7)
[2016-12-28] MEDS: COUMADIN PO SCH (21:23)
[2016-12-28] MEDS: NORCO-5 PO PRN (21:23)
[2016-12-29] MEDS: LASIX IV SCH ×2 (06:05→17:39)
[2016-12-29 07:22] LABS: AGAP 9; ALKALINE PHOSPHATASE 143 U/L (32-104); BUN 42 mg/dL (8-22); CALCIUM 9.1 mg/dL (8.8-10.2); CHLORIDE 102 mmol/L (98-107); COSMO 291; GOT 94 U/L (10-30); GPT 53 U/L (10-36); POTASSIUM 4.6 mmol/L (3.5-5.1); SODIUM 140 mmol/L (136-145); TCO2 29 mmol/L (25-35); TOTAL BILIRUBIN 0.98 mg/dL (0.20-1.00); TOTAL PROTEIN 6.2 g/dL (6.3-8.3)
[2016-12-29 07:27] LABS: HEMATOCRIT 36.8 % (37.0-47.0); HEMOGLOBIN 12.1 g/dL (12.0-16.0); MANUAL DIFF NEEDED? YES; MCH 31.3 PG (27-31); MCHC 32.9 g/dL (33-37); MCV 95.3 FL (81-99); MPV 9.5 FL (7.4-10.4); PLT 74 X1000 (130-400); RBC 3.86 XMIL (4.2-5.4)
--- NOTE | 2016-12-29 07:38 | Diag Imaging Result Doc PS360 ---
EXAM: CHEST-PORTABLE INDICATION: pleural effusion COMPARISON: 12/28/2016 FINDINGS: The right chest port is stable. Bilateral effusions at the bases are essentially stable with stable adjacent atelectasis and/or infiltrate. No new consolidation is identified. Cardiac silhouette is stable. Bony sclerosis consistent with osteoblastic metastatic disease is again noted. IMPRESSION: Essentially stable chest. Electronically signed by Yousif Valenzuela 12/29/2016 7:36 AM
[2016-12-29 08:38] LABS: BANDS 6 % (0-1); LYMPHS 38 % (21-51); MONO 2 % (1-9)
[2016-12-29] MEDS: SODIUM CHLORIDE 0.9% INJ SCH ×2 (08:39→22:05)
[2016-12-29] MEDS: DECADRON PO SCH (08:39)
[2016-12-29] MEDS: PROTONIX IV SCH ×2 (08:39→22:05)
[2016-12-29] MEDS: FOLIC ACID PO SCH (08:39)
[2016-12-29] MEDS: ZYLOPRIM PO SCH (08:39)
--- NOTE | 2016-12-29 13:42 | PROGRESS NOTE ---
DATE: 12/29/2016 SUBJECTIVE: Patient has no focal complaints. OBJECTIVE: Blood pressure 110/58, heart rate of 90, respiratory rate 20, temperature 97.3 degrees, 92% on 3 L.Cardiovascular: Regular rate and rhythm. Pulmonary: Bilateral breath sounds. Clear to auscultation with clearly diminished breath sounds at both left and right based. LABORATORY DATA: White count 80183, hemoglobin and hematocrit 12 and 36, platelets 74,000, CMP looked okay. AST and ALT were up a little bit at 94 and 553. PROBLEM LIST: 1. Multiple myeloma. This is being handled by Dr. Schmitt. She is status post treatment a couple of days ago. 2. Pulmonary edema with pleural effusions. We are continuing diuresis, probably have to entertain strongly doing a thoracentesis just because her x-ray is still not improved and she is still symptomatic. 3. Acute kidney injury. Appears to be stable. Continue on diuretics and monitor. 4. Thrombocytopenia appears to be stable. We will monitor closely. No active bleeding. 5. Constipation. Continue her bowel regimen. DISPOSITION: Get her pulmonary edema effusion issue resolved. Possibly can get home in the next 24 hours. It depends on how she is doing clinically. cc: Nadir Blanca MD
--- NOTE | 2016-12-29 19:38 | Extremity Venous Study ---
PROCEDURE NAME: Venous U/S Bilateral Legs - 12/29/2016 BILATERAL LOWER EXTREMITY VENOUS ULTRASOUND: REQUESTING PHYSICIAN: Kaya Russo MD. HEALTHCARE ECONOMICS CONSULTANT: Yordy. INDICATION: Edema in legs. History of cancer. FINDINGS: All deep and superficial veins were visualized along their course. All veins compressible forward flow. No evidence of intraluminal thrombus. SUMMARY: No deep or superficial venous thrombosis seen in bilateral lower extremities. cc: MD Kaya Bains MD
[2016-12-29] MEDS: NORCO-5 PO PRN (22:05)
--- NOTE | 2016-12-30 06:07 | Diag Imaging Result Doc PS360 ---
EXAM: CHEST-PORTABLE HISTORY: dyspnea TECHNIQUE: COMPARISON: 12/29/2016. FINDINGS: No change in the right subclavian port catheter. There are bilateral basilar infiltrates and atelectasis. There are small pleural effusions. The heart remains mildly prominent. Vascular distention persists. IMPRESSION: Slight interval improvement. Electronically signed by Octaviano Edmond 12/30/2016 6:05 AM
[2016-12-30] MEDS: LASIX IV SCH ×2 (06:21→17:00)
[2016-12-30 06:36] LABS: BASO% 1.5 % (0.0-0.8); HEMATOCRIT 37.8 % (37.0-47.0); HEMOGLOBIN 12.4 g/dL (12.0-16.0); MANUAL DIFF NEEDED? YES; MCH 31.3 PG (27-31); MCHC 32.8 g/dL (33-37); MCV 95.5 FL (81-99); MPV 9.7 FL (7.4-10.4); PLT 69 X1000 (130-400); RBC 3.96 XMIL (4.2-5.4)
[2016-12-30 06:51] LABS: ALBUMIN 3.1 g/dL (3.5-5.0); CALCIUM 9.2 mg/dL (8.8-10.2); POTASSIUM 4.6 mmol/L (3.5-5.1); TOTAL PROTEIN 6.9 g/dL (6.3-8.3)
[2016-12-30 07:03] LABS: BANDS 6 % (0-1); LYMPHS 16 % (21-51); MONO 2 % (1-9)
[2016-12-30] MEDS: PROTONIX IV SCH ×2 (08:49→20:55)
[2016-12-30] MEDS: SODIUM CHLORIDE 0.9% INJ SCH ×2 (08:49→20:55)
[2016-12-30] MEDS ORDERED: MARCAINE 0.25% PF/EPI 1:200,000 ONE (10:03)
[2016-12-30] MEDS ORDERED: XYLOCAINE 1%/EPI 1:100,000 ONE (10:03)
[2016-12-30] MEDS ORDERED: KEFZOL 1 GM/D5W 1 GM/50 ML IVPB ONE (10:17)
[2016-12-30] MEDS ORDERED: VELCADE SUBQ ONE (10:30)
[2016-12-30] MEDS ORDERED: FENTANYL ONE (10:55)
[2016-12-30] MEDS ORDERED: VERSED ONE (10:56)
[2016-12-30] MEDS ORDERED: DIPRIVAN 1% ONE (10:56)
--- NOTE | 2016-12-30 11:11 | Diag Imaging Result Doc PS360 ---
EXAM: CHEST-PORTABLE HISTORY: post thoracentesis TECHNIQUE: Portable upright COMPARISON: A film taken earlier at 5:00 AM FINDINGS: Interval decrease in the size of the right-sided effusion. I believe there is a small hydropneumothorax. There is only slightly improved aeration the lower right lung. The left lung is unchanged. Diffusely sclerotic bones. IMPRESSION: Decrease in the size of the right sided effusion although I believe there is a small hydropneumothorax Electronically signed by Octaviano Edmond 12/30/2016 11:09 AM
--- NOTE | 2016-12-30 13:29 | PROGRESS NOTE ---
DATE: 12/30/2016 SUBJECTIVE: The patient has no focal complaints. She looks well. No major issues. OBJECTIVE: Vital Signs: Blood pressure 102/70, heart rate 107, respiratory rate 20, temperature 97.5 degrees. Cardiovascular: Tachycardic. Pulmonary: Bilateral breath sounds. Bronchial at the bases. Gastrointestinal: Soft, nontender, nondistended. Bowel sounds were positive. Extremities: No clubbing or cyanosis. She does have some peripheral edema of 2+ at least, up to the midshin. LABORATORY DATA: White count of 29, hemoglobin and hematocrit 12 and 37, platelets of 69,000. Chemistries looked okay. AST and ALT up a little bit, 82 and 53. PROBLEM LIST: 1. Volume overload. We are still diuresing her. She is status post thoracentesis today. I will go ahead and order some basic laboratories on the fluids because this is the first time it has been analyzed. Again, it is probably transudative, but we will monitor. 2. Multiple myeloma, status post Velcade. Dr. Schmitt is following. 3. Acute kidney injury. Appears to be stable. 4. Thrombocytopenia appears to be stable. DISPOSITION: Hopefully, I think if she is stable tomorrow and chest x-ray looks improved, we can get her home tomorrow. cc: Nadir Blanca MD
--- NOTE | 2016-12-30 13:39 | OPERATIVE NOTE ---
PROCEDURE DATE: 12/30/2016 PREOPERATIVE DIAGNOSIS: Right pleural effusion. History of multifaceted multiple myeloma with bone, hepatic and probable lung mets. PROCEDURE: Right thoracentesis for effusion. PROCEDURE IN DETAIL: The patient was brought to the operating room, placed in sitting position leaning over a Carrera stand with multiple pillows. The back of her right chest was prepped and draped in the appropriate manner. It was infiltrated with Xylocaine the introduction of the needle revealed a bloody effusion. A large Angiocath was subsequently placed with aspiration of approximately 500+ mL of bloody effusion. It was sent for routine cytology. The patient has known hepatic metastases, multiple myeloma with leukemia, as well as multiple bony metastases. She tolerated the procedure well and was transferred to recovery where chest x-ray will be performed. ESTIMATED BLOOD LOSS: Was zero except for the bloody effusion that was removed. cc: Smith Segura MD
[2016-12-30] MEDS: FOLIC ACID PO SCH (17:00)
[2016-12-30] MEDS: ZYLOPRIM PO SCH (17:00)
[2016-12-30] MEDS: NORCO-5 PO PRN (20:55)
[2016-12-31 06:15] LABS: BASO% 1.4 % (0.0-0.8); EOS# 0.01 X1000 (0.0-0.7); HEMATOCRIT 34.9 % (37.0-47.0); HEMOGLOBIN 11.6 g/dL (12.0-16.0); MANUAL DIFF NEEDED? YES; MCH 31.8 PG (27-31); MCHC 33.2 g/dL (33-37); MCV 95.6 FL (81-99); MPV 10.7 FL (7.4-10.4); PLT 67 X1000 (130-400); RBC 3.65 XMIL (4.2-5.4)
[2016-12-31 06:32] LABS: BANDS 2 % (0-1); LYMPHS 18 % (21-51); MONO 2 % (1-9); NRBC 6 % (0-0)
[2016-12-31 06:38] LABS: AGAP 11; ALBUMIN 2.9 g/dL (3.5-5.0); ALKALINE PHOSPHATASE 120 U/L (32-104); BUN 49 mg/dL (8-22); CHLORIDE 96 mmol/L (98-107); COSMO 288; GOT 91 U/L (10-30); GPT 54 U/L (10-36); POTASSIUM 4.5 mmol/L (3.5-5.1); SODIUM 138 mmol/L (136-145); TCO2 31 mmol/L (25-35); TOTAL BILIRUBIN 0.93 mg/dL (0.20-1.00); TOTAL PROTEIN 6.3 g/dL (6.3-8.3)
[2016-12-31] MEDS: LASIX IV SCH (06:47)
[2016-12-31 07:38] VITALS: BP 98/62
--- NOTE | 2016-12-31 07:38 | Diag Imaging Result Doc PS360 ---
EXAM: CHEST-PORTABLE INDICATION: dyspnea TECHNIQUE: One view COMPARISON: 12/30/2016 FINDINGS: Right chest port is in stable position. Like the previous study, there is suggestion of a possible small right hydropneumothorax at the lower lung zone. It has probably decreased in size. There is adjacent right basilar atelectasis and/or infiltrate. No new consolidation is identified. Cardiac silhouette is stable. IMPRESSION: Suggestion of a likely small right hydropneumothorax that has probably decreased slightly in size. Electronically signed by Yousif Valenzuela 12/31/2016 7:35 AM
[2016-12-31] MEDS: PROTONIX IV SCH (08:49)
[2016-12-31] MEDS: FOLIC ACID PO SCH (08:49)
[2016-12-31] MEDS: COLACE PO PRN (08:49)
[2016-12-31] MEDS: ZYLOPRIM PO SCH (08:49)
[2016-12-31] MEDS: SODIUM CHLORIDE 0.9% INJ SCH (08:49)
[2016-12-31] MEDS: NORCO-5 PO PRN (08:54)
--- NOTE | 2016-12-31 18:17 | DISCHARGE SUMMARY ---
ADMISSION DATE: 12/19/2016 DISCHARGE DATE: 12/31/2016 CONSULTATIONS: 1. Fred Schmitt MD with Hematology/Oncology. 2. Massimo Georges MD with Nephrology. PERTINENT PROCEDURES: 1. Chest, abdomen, pelvis CT showed moderate bilateral pleural effusions associated with compressive atelectasis at bilateral lobes; heterogeneous liver suspicious for metastatic disease in liver; mild splenomegaly, extensive skeletal metastasis at the thorax, abdomen and pelvis; associated paraspinal masses along bilateral mid and lower thoracic spine; there are smaller soft tissue masses associated with metastatic disease at the lower lumbar and sacral spine. 2. Renal ultrasound showed possible small right renal cyst. 3. Ultrasound-guided liver biopsy done on 12/22/2016. 4. Colonoscopy and EGD that showed diverticulosis. Otherwise normal. 5. Echocardiogram showed an EF greater than 75%. 6. Bilateral lower extremity Doppler showed no deep or superficial venous thrombosis. 7. Right thoracentesis performed by Dr. Segura where they removed 500+ mL of bloody effusion. DISCHARGE DIAGNOSES: 1. Multiple myeloma status post Velcade, followed by Dr. Schmitt. 2. Acute kidney injury. Stable. 3. Thrombocytopenia. Stable. 4. Volume overload. The patient has received diuresis along with a right thoracentesis by Dr. Segura. 5. Constipation improved. Continue bowel regimen. HOSPITAL COURSE: Ms. Lombardi is a 66-year-old female who carries no significant past medical history, who was sent as a direct admission for further workup of metastatic disease. The patient reported over 4 weeks ago she started to experience abdominal pain associated with nausea and vomiting. She was severely constipated for the last 4 weeks as well. Unintentional weight loss. Denied fever, chills, shortness of breath. She had been seen by Shannon Paulson, Nurse Practitioner at [facility] at which time she underwent some routine lab work that revealed a white count of 28, platelet count of 73,000, and elevated LFTs. She underwent abdominal ultrasound that revealed multiple intermediate solid organ hypoechoic lesions. That was then followed by a CT of the chest without contrast that revealed bilateral pleural effusions as well as bilateral pleural thickening. She also underwent a CT of the abdomen and pelvis that showed diffuse bony osteolytic defects consistent with metastatic disease and also multiple lesions in the liver suspicious for metastatic disease. She was then referred to Dr. Schmitt for further workup. She was noted to have a normal bone scan but she did complain of occasional back pain and intermittent abdominal pain. The patient was admitted for metastatic disease and a consultation with GI for upper and lower scopes as well as Dr. Schmitt. Her liver biopsy showed plasma cell neoplasm. Her acute kidney injury was slowly improved. She was also being followed by Nephrology. She did have an upper and lower scope by Dr. Levin that showed diverticulosis, otherwise it was a normal examination. She had chest x-rays that were still consistent with pulmonary edema and stable pleural effusions. She was diuresed well. She was diagnosed with multiple myeloma. She was started on Velcade. Her white count did drop. Her LFT abnormalities were improving. For her bone metastasis she will be started on Zometa as an outpatient. She was also placed on Decadron and albuterol for tumor lysis prophylaxis. She will follow up with Dr. Schmitt as an outpatient to continue with her chemotherapy. She also underwent a right thoracentesis where they aspirated 500+ mL of bloody effusion. Her follow-up chest x-ray showed a decrease in her small right hydropneumothorax with a right chest port in stable position. The patient is being discharged home today to follow up with Dr. Schmitt. VITAL SIGNS ON DISCHARGE: Temperature is 97.6 degrees, heart rate 117, respirations 20, blood pressure 98/62, O2 is 94% on room air. LABORATORY: White count is down from 20, 79, platelet count is stable at 67,000 , BUN 49, creatinine 0.9. DISCHARGE DIET: GI soft. DISCHARGE MEDICATIONS: 1. Allopurinol 200 mg p.o. daily. 2. Colace 100 mg p.o. b.i.d. 3. Folic acid 1 mg p.o. daily. 4. Lasix 20 mg p.o. b.i.d. 5. Driscoll 5/25, 1 each p.o. q.4 hours p.r.n. 6. Zofran ODT 4 mg p.o. q.8 hours p.r.n. nausea, vomiting. FOLLOWUP: 1. The patient is being discharged home with home health, with [facility] as well as DME with a hospital bed and bedside commode. 2. Patient will follow up with Dr. Schmitt to continue with treatment. 3. She was also provided with a list of primary care physicians who are accepting new patients. 4. Patient can return to the ED for any worsening of symptoms. DISCHARGE TIME: Greater than 40 minutes. Dictated by SP Albarado for Jono Ayala MD cc: Jono Ayala MD [facility]
[2016-12-31] MEDS ORDERED: LASIX PO SCH (21:00)
--- NOTE | 2017-01-08 09:27 | OPERATIVE NOTE ---
PROCEDURE DATE: 12/25/2016 DIAGNOSIS: Multiple myeloma. PROCEDURE: Right subclavian PowerPort. DESCRIPTION OF PROCEDURE: On completion of the bone marrow biopsy and aspiration by Dr. Macario, the patient was turned back onto her back. Her right chest and neck were prepped and draped in the appropriate manner. In the midclavicular line, a fingerbreadth below the clavicle, an area was infiltrated with Marcaine and Xylocaine with epinephrine. A transverse incision was made down to the clavipectoral fascia. Through the base of this incision, a subcutaneous pocket was developed inferiorly for the reservoir. Likewise, through the base of this incision, the subclavian vein was cannulated. A guidewire was introduced into the right atrial area of the heart. There was no pneumothorax on fluoroscopy. The system was dilated with a 9-Georgian introducer. The system was trimmed to 19 cm, hooked up to the reservoir, flushed with heparinized saline, and threaded down the superior vena cava and right atrial junction. It was flushed with heparinized saline. Position was confirmed with repeat fluoroscopy. The reservoir was anchored to clavipectoral fascia with 3-0 silk. Subcu was subsequently closed with 3-0 Vicryl, and the skin itself with 4-0 Vicryl subcuticular. Steri-Strips, Telfa, and OpSite were applied. The patient was subsequently awakened and extubated in the operating room, and transferred to recovery. ESTIMATED BLOOD LOSS: About 10 mL. cc: Smith Segura MD
== END 2016-12-31 14:43 | disposition home health service (06) ==
LOC: DIRADM 10:52 → SUATTDRO 10:52 → 3N 10:53
PROVIDERS: ATTEND Internal Medicine

== ENCOUNTER 2017-01-12 10:57 | Inpatient (IN) ==
[2017-01-12 12:26] LABS: ALLEN TEST YES; BLOOD TYPE ARTERIAL; DRAW SITE R RADIAL; O2(CT) 13.6 mL/dL (15.0-23.0); PCO2(98.6) 40 mmHg (35-45); PO2(98.6) 65 mmHg (60-100); SAMPLE BLOOD; SAO2 95.3 % (95.0-100.0); THB 10.4 g/dL (11.5-17.4); pH(98.6) 7.47 (7.35-7.45)
[2017-01-12 12:28] LABS: MODALITY CANNULA
[2017-01-12 13:17] LABS: BASO% 1.1 % (0.0-0.8); EOS# 0.01 X1000 (0.0-0.7); EOS% 0.1 % (0.0-10.0); HEMATOCRIT 32.6 % (37.0-47.0); HEMOGLOBIN 10.9 g/dL (12.0-16.0); IMM GRAN# 0.35 X1000 (0.0-0.04); IMM GRAN% 2.3 % (0.0-0.5); LYMPH# 4.13 X1000 (1.2-3.4); MANUAL DIFF NEEDED? YES; MCH 31.9 PG (27-31); MCHC 33.4 g/dL (33-37); MCV 95.3 FL (81-99); MONO# 1.94 X1000 (0.11-0.59); MONO% 12.7 % (1.7-9.3); MPV 11.6 FL (7.4-10.4); NEUT% 56.8 % (42.2-75.2); PLT 38 X1000 (130-400); RBC 3.42 XMIL (4.2-5.4)
[2017-01-12 13:20] LABS: INR 1.31; PTT 24.5 Seconds (22.0-36.0)
[2017-01-12 13:30] LABS: LYMPHS 14 % (21-51); MONO 6 % (1-9)
[2017-01-12 13:31] LABS: ALBUMIN 3.3 g/dL (3.5-5.0); CALCIUM 10.2 mg/dL (8.8-10.2); MAGNESIUM 2.4 mg/dL (1.5-2.7); POTASSIUM 3.9 mmol/L (3.5-5.1); TOTAL BILIRUBIN 1.46 mg/dL (0.20-1.00); TOTAL PROTEIN 6.6 g/dL (6.3-8.3)
[2017-01-12 20:55] LABS: TOTAL PROT BODY FLUID 4.2 g/dL
[2017-01-12 21:08] LABS: SPECIMEN PLEURAL FLUID
[2017-01-12 21:09] LABS: DIFF NEEDED? YES; WBC BF 4390 /cumm
[2017-01-12 21:53] LABS: MONOS 98 %; POLYS 2 %
[2017-01-13 05:21] LABS: EOS# 0.01 X1000 (0.0-0.7); EOS% 0.1 % (0.0-10.0); HEMOGLOBIN 10.1 g/dL (12.0-16.0); IMM GRAN# 0.31 X1000 (0.0-0.04); IMM GRAN% 2.5 % (0.0-0.5); LYMPH# 3.25 X1000 (1.2-3.4); LYMPH% 26.1 % (20.5-51.1); MANUAL DIFF NEEDED? YES; MCH 32.1 PG (27-31); MCHC 33.7 g/dL (33-37); MCV 95.2 FL (81-99); MONO% 17.6 % (1.7-9.3); MPV 11.5 FL (7.4-10.4); NEUT% 52.7 % (42.2-75.2); PLT 48 X1000 (130-400); RBC 3.15 XMIL (4.2-5.4)
[2017-01-13 05:32] LABS: INR 1.29; PROTIME 13.8 Seconds (9.2-11.7); PTT 25.9 Seconds (22.0-36.0)
[2017-01-13 06:06] LABS: ALBUMIN 2.8 g/dL (3.5-5.0); CALCIUM 9.9 mg/dL (8.8-10.2); MAGNESIUM 2.4 mg/dL (1.5-2.7); POTASSIUM 4.5 mmol/L (3.5-5.1); TOTAL BILIRUBIN 1.08 mg/dL (0.20-1.00); TOTAL PROTEIN 5.5 g/dL (6.3-8.3)
[2017-01-13 06:52] LABS: BANDS 10 % (0-1); LYMPHS 18 % (21-51); MONO 6 % (1-9)
[2017-01-13 06:53] LABS: HYPOCHROM 1+; LARGE PLATELETS 1+
[2017-01-13 11:54] LABS: URINE CULTURE NEEDED? NO; URINE MICRO REVIEW NEEDED? NO; URINE SOURCE CATH
[2017-01-13 12:07] LABS: BILIRUBIN URINE NEGATIVE (NEGATIVE); BLOOD URINE NEGATIVE (NEGATIVE); COLOR YELLOW; GLUCOSE URINE NEGATIVE (NEGATIVE); LEUKOCYTES URINE NEGATIVE (NEGATIVE); NITRITE URINE NEGATIVE (NEGATIVE); PROTEIN URINE TRACE mg/dL (NEGATIVE); SP GRAVITY URINE 1.018; TURBIDITY URINE CLEAR (CLEAR); UR EPITHELIAL CELLS <10 /HPF (<10); URINE BACTERIA NEGATIVE /HPF; URINE RBC <10 /HPF (<10); URINE WBC <10 /HPF (<10); UROBILINOGEN URINE NORMAL (NORMAL)
[2017-01-14 05:52] LABS: BASO% 0.8 % (0.0-0.8); EOS# 0.02 X1000 (0.0-0.7); EOS% 0.2 % (0.0-10.0); HEMATOCRIT 26.1 % (37.0-47.0); HEMOGLOBIN 8.6 g/dL (12.0-16.0); IMM GRAN# 0.42 X1000 (0.0-0.04); IMM GRAN% 4.1 % (0.0-0.5); LYMPH# 2.32 X1000 (1.2-3.4); LYMPH% 22.4 % (20.5-51.1); MANUAL DIFF NEEDED? YES; MCH 31.7 PG (27-31); MCV 96.3 FL (81-99); MONO# 1.91 X1000 (0.11-0.59); MONO% 18.5 % (1.7-9.3); PLT 59 X1000 (130-400); RBC 2.71 XMIL (4.2-5.4)
[2017-01-14 05:54] LABS: ALBUMIN 2.6 g/dL (3.5-5.0); CALCIUM 9.7 mg/dL (8.8-10.2); POTASSIUM 4.1 mmol/L (3.5-5.1); TOTAL BILIRUBIN 0.81 mg/dL (0.20-1.00); TOTAL PROTEIN 5.3 g/dL (6.3-8.3)
[2017-01-14 07:23] LABS: BANDS 6 % (0-1); HYPOCHROM 1+; LYMPHS 12 % (21-51); MONO 2 % (1-9); NRBC 1 % (0-0)
[2017-01-15 05:39] LABS: BASO% 1.9 % (0.0-0.8); EOS# 0.03 X1000 (0.0-0.7); EOS% 0.2 % (0.0-10.0); HEMATOCRIT 27.7 % (37.0-47.0); HEMOGLOBIN 9.1 g/dL (12.0-16.0); MANUAL DIFF NEEDED? YES; MCHC 32.9 g/dL (33-37); MCV 97.5 FL (81-99); MPV 9.9 FL (7.4-10.4); PLT 72 X1000 (130-400); RBC 2.84 XMIL (4.2-5.4)
[2017-01-15 05:53] LABS: ALBUMIN 2.9 g/dL (3.5-5.0); CALCIUM 9.6 mg/dL (8.8-10.2); POTASSIUM 4.3 mmol/L (3.5-5.1); TOTAL BILIRUBIN 0.7 mg/dL (0.20-1.00); TOTAL PROTEIN 5.5 g/dL (6.3-8.3)
[2017-01-15 07:33] LABS: BANDS 6 % (0-1); LYMPHS 22 % (21-51); MONO 6 % (1-9); NRBC 2 % (0-0)
[2017-01-16 05:51] LABS: BASO% 2.7 % (0.0-0.8); EOS# 0.07 X1000 (0.0-0.7); EOS% 0.3 % (0.0-10.0); HEMATOCRIT 27.1 % (37.0-47.0); HEMOGLOBIN 8.8 g/dL (12.0-16.0); MANUAL DIFF NEEDED? YES; MCH 31.9 PG (27-31); MCHC 32.5 g/dL (33-37); MCV 98.2 FL (81-99); MPV 10.4 FL (7.4-10.4); PLT 67 X1000 (130-400); RBC 2.76 XMIL (4.2-5.4)
[2017-01-16 06:20] LABS: ALBUMIN 2.7 g/dL (3.5-5.0); CALCIUM 9.6 mg/dL (8.8-10.2); TOTAL BILIRUBIN 0.74 mg/dL (0.20-1.00); TOTAL PROTEIN 5.4 g/dL (6.3-8.3)
[2017-01-16 06:55] LABS: BANDS 12 % (0-1); EOS 2 % (1-10); LYMPHS 10 % (21-51); MONO 4 % (1-9)
[2017-01-16 06:56] LABS: LARGE PLATELETS 1+
[2017-01-17 07:27] LABS: EOS# 0.06 X1000 (0.0-0.7); EOS% 0.2 % (0.0-10.0); HEMATOCRIT 27.2 % (37.0-47.0); HEMOGLOBIN 8.9 g/dL (12.0-16.0); MANUAL DIFF NEEDED? YES; MCH 32.4 PG (27-31); MCHC 32.7 g/dL (33-37); MCV 98.9 FL (81-99); MPV 10.2 FL (7.4-10.4); PLT 65 X1000 (130-400); RBC 2.75 XMIL (4.2-5.4)
[2017-01-17 07:46] LABS: BANDS 10 % (0-1); HYPOCHROM 1+; LYMPHS 10 % (21-51); MONO 4 % (1-9); NRBC 1 % (0-0)
[2017-01-17 11:21] VITALS: BP 88/62
== END 2017-01-17 16:04 | disposition home or self-care (01) ==
LOC: SUATTDRO 10:57 → DIRADM 10:57 → 3S 11:22
PROVIDERS: ATTEND Internal Medicine